=== PATIENT | female | born 1945 | race Caucasian/White ===

== ENCOUNTER → 2020-03-05 15:42 | Outpatient (CLI) | payer MEDICARE, SELFPAY ==
--- NOTE | ~2020-03-05 | XR_ITS ---
XR hip LT 2V w AP pelvis 03/05/2020 15:53 Indication: Left hip pain Procedure: AP pelvis and 2 views left hip Comparison: No prior studies for comparison. Findings: There is moderate osteoarthritis of the left hip. Pelvic rings are intact. Sacral foramen a re symmetric. No significant soft tissue abnormality. No foreign bodies. No acute fracture or traumat ic malalignment. Impression: 1: Moderate osteoarthritis of the left hip. Reviewed, dictated and finalized at location A. Impression: 1: Moderate osteoarthritis of the left hip.
== END ==
PROVIDERS: PCP Family Medicine; Visit Provider Family Medicine
DX: M16.12 Unilateral primary osteoarthritis, left hip (principal); M25.552 Pain in left hip
CPT/HCPCS: 73502

== ENCOUNTER 2020-05-17 08:08 | Outpatient (CLI) | payer MEDICARE, SELFPAY ==
--- NOTE | ~2020-05-17 | XR_ITS ---
EXAMINATION: XR lg joint inject/asp w image DATE: 05/17/2020 09:11 INDICATION: Left hip primary osteoarthritis. TECHNIQUE: A time-out was performed to verify the patient's name, date of , and procedure to b e performed. The procedure including the risks, benefits, and alternatives was discussed with the pat ient. Risks discussed included bleeding and infection. The patient understood the risks and agreed to proceed. The skin overlying the left joint was prepped and draped in usual sterile fashion. Anesth etic was administered with 1% lidocaine subcutaneously. A 22 G needle was advanced under fluoroscopi c guidance into the joint. Subsequently, injectate consisting of 5 mL 1% lidocaine and 2 mL 10 mg/mL Kenalog was instilled. The needle was removed and the entry site was cleaned and dressed. There wer e no immediate complications. Fluoroscopy exposure time was 0.1 minutes. The total number of images w as 1. FINDINGS: Real-time fluoroscopy demonstrates the needle in the left hip joint. Patient's pain prior t o procedure:08/18. Patient's pain following the procedure: 05/20. IMPRESSION: 1. Fluoroscopy guided left hip joint injection of local anesthetic and steroid with decrease in the p atient's presenting pain. Reviewed, dictated and finalized at location A. GER ENROLLMENT IMPRESSION: 1. Fluoroscopy guided left hip joint injection of local anesthetic and steroid with decrease in the patient's presenting pain.
== END 2020-05-17 08:09 | disposition home or self-care (01) ==
PROVIDERS: PCP Family Medicine; Visit Provider Orthopaedic Surgery
DX: M16.12 Unilateral primary osteoarthritis, left hip (principal)
CPT/HCPCS: 20610; 77002; J3301

== ENCOUNTER 2021-08-21 10:31 | Outpatient (CLI) | payer MEDICARE, SELFPAY ==
--- NOTE | ~2021-08-21 | XR_ITS ---
EXAMINATION: XR lg joint inject/asp w image DATE: 08/21/2021 11:23 INDICATION: Left hip pain. TECHNIQUE: A time-out was performed to verify the patient's name, date of , and procedure to b e performed. The procedure including the risks, benefits, and alternatives was discussed with the pat ient. Risks discussed included bleeding and infection. The patient understood the risks and agreed to proceed. The skin overlying the left hip joint was prepped and draped in usual sterile fashion. An esthetic was administered with 1% lidocaine subcutaneously. A 22 G needle was advanced under fluoros copic guidance into the joint. Subsequently, injectate consisting of 5 mL 1% lidocaine and 2 mL 10 m g/mL Kenalog was instilled. The needle was removed and the entry site was cleaned and dressed. Ther e were no immediate complications. Fluoroscopy exposure time was 0.1 minutes. The total number of lila ges was 1. FINDINGS: Real-time fluoroscopy demonstrates the needle in the left hip joint. Patient's pain prior t o procedure:2/10. Patient's pain following the procedure: 0/10. IMPRESSION: 1. Fluoroscopy guided left hip joint injection of local anesthetic and steroid with decrease in the p atient's presenting pain. Reviewed, dictated and finalized at location A. IMPRESSION: 1. Fluoroscopy guided left hip joint injection of local anesthetic and steroid with decrease in the patient's presenting pain.
== END 2021-08-21 10:32 | disposition home or self-care (01) ==
PROVIDERS: PCP Family Medicine; Visit Provider Orthopaedic Surgery
DX: M25.552 Pain in left hip (principal)
CPT/HCPCS: 20610; 77002; J3301; Q9966

== ENCOUNTER 2023-10-19 16:35 | Emergency (ER) | payer MEDICARE, SELFPAY ==
[2023-10-19 16:53] VITALS: PULSE 67; RESP 16; TEMP 36.6; O2SAT 99
[2023-10-19 16:58] VITALS: BP 130/76
--- NOTE | 2023-10-19 16:59 | PC.NURSE ---
Nickel size fluid filled blister to lateral right foot.
--- NOTE | 2023-10-19 17:47 | ED.WOUNDLAC ---
HPI - Wound/Laceration General Chief Complaint: Wound/Laceration Stated Complaint: Skin Sore/Right Foot Time Seen by Provider: 10/19/23 17:20 Source: patient, RN notes reviewed and old records reviewed Mode of arrival: ambulatory Limitations: no limitations History of Present Illness HPI narrative: 77year old female accompanied by family member presents to [facility] with complaints of noting a small red dot area to the right lateral upper foot about 4 days ago which was noted after mowing. Patient reports that now she has a blister type of lesion noted to the same area. Patient reports no pain to the area or any acute redness of tissue noted. Patient reports that she has applied some antihistamine ointment to blister area. Patient denies any fevers, chills or sweats. Patient reports allergy to some antibiotic but can't recall name or reaction. Patient has previously taken Cefdinir without reaction noted in patient medication history. Onset (ago): day(s) (4) Extremity Location: Right: foot (right upper foot area) Treatments prior to arrival: other (antihistamine skin ointment) Related Data Home Medications Medication Instructions Recorded Confirmed citalopram 40 mg tablet mg 10/19/23 raloxifene 60 mg tablet mg 10/19/23 Allergies Allergy/AdvReac Type Severity Reaction Status Date / Time iodine Allergy Unknown Verified 10/19/23 16:52 Review of Systems Review of Systems: CONSTITUTIONAL: Denies fever, chills, or sweats. CARDIOVASCULAR: Denies chest pain, palpitations, or edema. RESPIRATORY: Denies cough or dyspnea. GASTROINTESTINAL: Denies abdominal pain, nausea, vomiting SKIN: Reports blister type of lesion to the right lateral upper foot with no pain to site, no drainage noted, felipa sized fluid filled blister. MUSCULOSKELETAL: Denies myalgia. NEUROLOGIC: Denies headache, numbness All systems reviewed & are unremarkable except as noted in HPI and below PMFSH Past Medical History Medical History Anxiety and depression Social History Social History Smoking status: Unknown if ever smoked Substance use type: does not use Gender identity (if verbalized by the patient): Female Comments At time of signature, agree with nursing past medical, surgical, social and family history. There is no relevant family history pertinent to the presenting complaint Exam Narrative: GENERAL: Well-appearing, well-nourished, and in no acute distress. HEAD: Normocephalic, atraumatic. EYES: PERRLA and EOMI. ENT: Nares clear, no rhinorrhea or epistaxis. Mucous membranes moist.TM's normal with good light reflex, throat pink with no swelling NECK: Supple. no lymphadenopathy CHEST: Clear to auscultation. No respiratory distress.SAO2 99% on room air HEART: Regular rate and rhythm. No murmur heard. Normal peripheral pulses. ABDOMEN: Soft, nontender, nondistended, normal active bowel sounds. EXTREMITIES: Normal range of motion. No edema. SKIN: Warm, dry. Felipa sized blister to right lateral upper foot, While cleansing with wound cleanser blister popped with clear fluid noted, antibiotic ointment applied and covered with gauze and Coban dressing NEURO: No focal deficits. Alert and oriented x3. Course Course Emergency Course: Patient is aware of diagnosis, understands and agrees to treatment plan. Anticipatory guidance given. Patient agrees to follow-up as directed and is aware of reasons to seek care at the emergency department. Portions of this record may have been created with voice recognition software Level of Care: Express Care Visit Vital Signs Vital signs: Vital Signs Temperature 36.6 C 10/19/23 16:53 Pulse Rate 67 10/19/23 16:53 Respiratory Rate 16 10/19/23 16:53 Pulse Oximetry 99 10/19/23 16:53 Oxygen Delivery Room Air 10/19/23 16:53 Temperature 36.6 C 10/19/23 16:53 Pulse Rate
== END 2023-10-19 18:14 | disposition home or self-care (01) ==
PROVIDERS: Emergency Provider Registered Nurse; PCP Family Medicine
DX: S90.821A Blister (nonthermal), right foot, initial encounter (principal); X58.XXXA Exposure to other specified factors, initial encounter; F41.9 Anxiety disorder, unspecified; F32.A Depression, unspecified
CPT/HCPCS: 99213; G0463

== ENCOUNTER 2024-05-24 16:25 | Emergency (ER) | payer MEDICARE, SELFPAY ==
--- NOTE | 2024-05-24 16:30 | ED.URI ---
HPI - URI/Sore Throat General Chief Complaint: Upper Respiratory Infection Stated Complaint: Headache/Sore Throat/Congestion Time Seen by Provider: 05/24/24 16:57 Source: patient and RN notes reviewed Mode of arrival: ambulatory Limitations: no limitations History of Present Illness HPI Narrative: 78-year-old female presents with concern for nasal congestion, sore throat, headache, body aches. Reports symptoms for 2 days. She reports she was exposed to RSV. She denies cough or shortness of breath. MD elicited complaint: nasal congestion Related Data Home Medications ?Medication ?Instructions ?Recorded ?Confirmed ?Last Taken ?Type mecobalamin (vitamin B12) 2,500 mcg PO .qod 10/03/22 11/03/23 Unknown History mcg chewable tablet cholecalciferol (vitamin D3) 125 5,000 unit PO .qod 04/21/23 05/24/24 Unknown History mcg (5,000 unit) capsule Allergies Allergy/AdvReac Type Severity Reaction Status Date / Time iodine Allergy Intermediate Urticaria Verified 05/24/24 16:32 Review of Systems Review of Systems: CONSTITUTIONAL: Denies malaise, chills, sweats, or fever. EYES: Denies visual changes, redness, or discharge. ENT: Reports rhinorrhea, congestion. Denies sinus pain, otalgia and sore throat. CARDIOVASCULAR: Denies chest pain, palpitations, or edema. RESPIRATORY: Denies cough. Denies dyspnea. GASTROINTESTINAL: Denies abdominal pain, nausea, vomiting, diarrhea SKIN: Denies rash or itching. MUSCULOSKELETAL: Reports myalgia. NEUROLOGIC: Reports headache. All systems reviewed & are unremarkable except as noted in HPI and below [facility] Past Medical History Medical History (Updated 05/24/24 @ 17:07 by Kelin Jaramillo NP) Bullous pemphigoid (~10/15/23) lower extremities possibly from medication( ibuprofen, cefdinir, citalopram?) Mixed hyperlipidemia cholesterol 198, triglycerides 87, HDL 61, LDL 118 with ratio 3.2 on 10/02/2023. Anxiety and depression Spider bite (~10/15/23) likely pemphigoid .dorsum right foot with cellulitis At moderate risk for fall Overweight (BMI 25.0-29.9) Breast cancer screening BMI 29.0-29.9,adult Osteopenia Vitamin B12 deficiency (10/03/21) Level low at 269 with goal greater than 400 on 10/03/2021. Hemoglobin normal at 13.5. 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 vestibular disorder BMI 32.0-32.9,adult Obesity (BMI 30.0-34.9) COVID-19 (~05/29/21) tested positive 06/04/2021 Acute non-recurrent maxillary sinusitis Osteoarthritis of left hip Colon cancer screening Breast cancer screening by mammogram Chronic left hip pain BMI 30.0-30.9,adult Family History Family History (System 10/27/23 @ 07:29 by Renetta Sommers) Father Patient's father is , Onset Age: 80 Family history of malignant neoplasm of stomach Grandparent Family history of malignant neoplasm of stomach Family history of malignant neoplasm of uterus Mother Family history of kidney disease, Onset Age: 94 Social History Social History Smoking packs per day: 1 Smoking cigarettes per day: 20.0 Years smoked: 50 Smoking pack-years: 50.00 Smoking status: Current every day smoker Tobacco type: cigarettes Alcohol intake: never Substance use: never Substance use type: does not use Lack of Transportation: YES Lack of Food: Never True Current Housing: I Have Housing Concerned About Future Housing: No Difficulty Paying Gas/Electric Bills: No Difficulty Paying for Meds: No Currently Unemployed: No Education: High School Diploma/GED Difficulty w/ Childcare or Family Care: No Gender identity (if verbalized by the patient): Female Comments At time of signature, agree with nursing past medical, surgical, social and family history. There is no relevant family history pertinent to the presenting complaint Exam Narrative: GENERAL: Well-appearing, well-nourished, and in no acute distress. HEAD: Normocephalic EYES: PERRLA, conjunctivae clear ENT: Nares clear. Mucous membranes moist. TM pearly maldonado with dull light reflex bilaterally; no tragal tenderness. Oropharynx not erythematous without lesions. Tonsils not enlarged and without exudate, no drooling, no hoarseness, no trismus, uvula midline. NECK: Supple. No lymphadenopathy CHEST: Clear to auscultation, breath sounds equal. No wheezing, rhonchi, rales, or stridor. No respiratory distress, speaks in full sentences. HEART: Regular rate and rhythm. No murmur heard. SKIN: Warm, dry, no rash. NEURO: Alert and oriented x3. PSYCH: Normal mood and affect Course Course Emergency Course: Patient is aware of diagnosis, understands and agrees to treatment plan. Anticipatory guidance given. Patient agrees to follow-up as directed and is aware of reasons to seek care at the emergency department. Portions of this record may have been created with voice recognition software Level of Care: Express Care Visit Vital Signs Vital signs: Reviewed. MDM - URI/Sore Throat MDM Narrative Medical decision making narrative: Differential diagnosis considered: Ballard virus, strep pharyngitis, allergic rhinitis, upper respiratory tract infection, sinusitis, rhinosinusitis, nasopharyngitis. viral pharyngitis, otitis media, otitis externa, pneumonia, bronchitis, viral cough syndrome, viral syndrome, and influenza. Exam findings show no acute concerns or changes; patient is non-toxic appearing and is in no distress. Patient is appropriate for outpatient treatment and follow-up. Lab Data Attestation: I reviewed the patient's lab results. Critical Care Time Critical Care Time Critical Care Time: No Discharge Plan Discharge Clinical Impression: Upper respiratory infection Patient Disposition: Home, Self-Care Condition: Stable Instructions: Upper Respiratory Infection (ED) Additional Instructions: Your rapid COVID and flu tests are negative -Take strict precautions to prevent the spread of your virus. Be diligent about covering your cough (even when you are alone) and washing your hands frequently. -You may contagious until you have been symptom and/or fever free for 24 hours without fever reducing medicine -Alternate Ibuprofen and Tylenol for pain and fever relief (per package directions) -Drink plenty of fluid - drink fluid with electrolytes such as Gatorade or other oral re-hydration solution. Avoid caffeine, which can make dehydration worse. -Get plenty of rest to help your body heal. -Use a cool mist humidifier for chest and nasal congestion. -Eat RAW honey or use cough drops to ease throat discomfort -Do not smoke or expose children to secondhand smoke -Wash your hands frequently. -Please follow-up with your primary care doctor in the next 1-2 days if your symptoms do not improve. -If you have any worsening of symptoms or any other concerns please go to the ED immediately. -Please take medications as prescribed and continue taking your home medications as usual. Patient Language: Croatian Prescriptions: No Action mecobalamin (vitamin B12) 2,500 mcg tablet,chewable PO .qod cholecalciferol (vitamin D3) 125 mcg (5,000 unit) capsule 5,000 unit PO .qod citalopram 40 mg tablet 40 mg PO DAILY Qty: 90 3RF raloxifene [Evista] 60 mg tablet 60 mg PO DAILY Qty: 90 3RF Follow-up/Referrals: Edwin Michael MD [Primary Care Provider] - Time of Disposition: 17:07
[2024-05-24 16:34] VITALS: BP 149/71; PULSE 84; RESP 18; TEMP 37; O2SAT 98
[2024-05-24 17:06] LABS: EDCOVIDSCREEN Negative (Negative); EDINFLUASCREEN Negative (Negative); EDINFLUBSCREEN Negative (Negative)
== END 2024-05-24 17:09 | disposition home or self-care (01) ==
PROVIDERS: Emergency Provider Nurse Practitioner; PCP Family Medicine
DX: J06.9 Acute upper respiratory infection, unspecified (principal); Z20.822 Contact with and (suspected) exposure to COVID-19; F17.210 Nicotine dependence, cigarettes, uncomplicated; E78.2 Mixed hyperlipidemia; M85.80 Other specified disorders of bone density and structure, unspecified site; E53.8 Deficiency of other specified B group vitamins; E66.9 Obesity, unspecified; Z68.30 Body mass index [BMI] 30.0-30.9, adult; Z86.16 Personal history of COVID-19; M16.12 Unilateral primary osteoarthritis, left hip
CPT/HCPCS: 87426; 87804; 99212; G0463

== ENCOUNTER 2025-01-11 10:07 | Emergency (ER) | payer MEDICARE, SELFPAY ==
--- NOTE | ~2025-01-11 | XR_ITS ---
EXAMINATION: XR ribs LT 2V w CXR 2V DATE: 01/11/2025 10:54 INDICATION: Shortness of breath and right rib pain TECHNIQUE: A frontal inspiratory view of the chest and 3 views of the right ribs were obtained. COMPARISON: None FINDINGS: Consolidation in the right upper lobe which extends to abut the major and minor fissures consistent with pneumonia. Mild linear discoid atelectasis at the left lower lung zone. Remainder of the lungs are clear. No pulmonary edema, pleural effusion or pneumothorax. Heart size is normal. No rib fractures identified. Mild to moderate thoracic spondylosis. IMPRESSION: 1. Right upper lobe pneumonia. Reviewed, dictated and finalized at location A.
[2025-01-11 10:16] VITALS: BP 113/51; PULSE 97; RESP 20; TEMP 36.7; O2SAT 95
--- NOTE | 2025-01-11 10:29 | ED.URI ---
HPI - URI/Sore Throat General Chief Complaint: Upper Respiratory Infection Stated Complaint: Shortness of Breath/Chest Pain/Cough/Body Aches Time Seen by Provider: 01/11/25 10:34 Source: patient and RN notes reviewed Mode of arrival: ambulatory Limitations: no limitations History of Present Illness HPI Narrative: 79-year-old female presents with concern for right-sided chest pain, worse when she moves or coughs. Reports it is tender. She denies injury or trauma. She reports she feels short of breath, has body aches and has an occasional cough. Reports 4 days of symptoms. MD elicited complaint: cough and other (Shortness of breath) Related Data Home Medications ?Medication ?Instructions ?Recorded ?Confirmed ?Last Taken ?Type mecobalamin (vitamin B12) 2,500 mcg PO .qod 10/03/22 11/03/23 Unknown History mcg chewable tablet cholecalciferol (vitamin D3) 125 5,000 unit PO .qod 04/21/23 05/24/24 Unknown History mcg (5,000 unit) capsule Allergies Allergy/AdvReac Type Severity Reaction Status Date / Time iodine Allergy Intermediate Urticaria Verified 01/11/25 10:20 Review of Systems Review of Systems: CONSTITUTIONAL: Denies malaise, chills, sweats, or fever. EYES: Denies visual changes, redness, or discharge. ENT: Reports rhinorrhea, congestion, sinus pain, otalgia and sore throat. CARDIOVASCULAR: Reports right side chest pain and tenderness. Denies palpitations or edema. RESPIRATORY: Reports occasional cough. Reports dyspnea. GASTROINTESTINAL: Denies abdominal pain, nausea, vomiting, diarrhea SKIN: Denies rash or itching. MUSCULOSKELETAL: Denies myalgia. NEUROLOGIC: Denies headache. All systems reviewed & are unremarkable except as noted in HPI and below [facility] Past Medical History Medical History (Updated 01/11/25 @ 11:18 by Kelin Jaramillo NP) Bullous pemphigoid (~10/15/23) lower extremities possibly from medication( ibuprofen, cefdinir, citalopram?) Mixed hyperlipidemia cholesterol 198, triglycerides 87, HDL 61, LDL 118 with ratio 3.2 on 10/02/2023. Anxiety and depression Spider bite (~10/15/23) likely pemphigoid .dorsum right foot with cellulitis At moderate risk for fall Overweight (BMI 25.0-29.9) Breast cancer screening BMI 29.0-29.9,adult Osteopenia Vitamin B12 deficiency (10/03/21) Level low at 269 with goal greater than 400 on 10/03/2021. Hemoglobin normal at 13.5. 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 vestibular disorder BMI 32.0-32.9,adult Obesity (BMI 30.0-34.9) COVID-19 (~05/29/21) tested positive 06/04/2021 Acute non-recurrent maxillary sinusitis Osteoarthritis of left hip Colon cancer screening Breast cancer screening by mammogram Chronic left hip pain BMI 30.0-30.9,adult Family History Family History (System 10/27/23 @ 07:29 by Renetta Sommers) Father Patient's father is , Onset Age: 80 Family history of malignant neoplasm of stomach Grandparent Family history of malignant neoplasm of stomach Family history of malignant neoplasm of uterus Mother Family history of kidney disease, Onset Age: 94 Social History Social History Smoking packs per day: 1 Smoking cigarettes per day: 20.0 Years smoked: 50 Smoking pack-years: 50.00 Smoking status: Current every day smoker Tobacco type: cigarettes Alcohol intake: never Substance use: never Substance use type: does not use Lack of Transportation: YES Lack of Food: Never True Current Housing: I Have Housing Concerned About Future Housing: No Difficulty Paying Gas/Electric Bills: No Difficulty Paying for Meds: No Currently Unemployed: No Education: High School Diploma/GED Difficulty w/ Childcare or Family Care: No Gender identity (if verbalized by the patient): Female Comments At time of signature, agree with nursing past medical, surgical, social and family history. There is no relevant family history pertinent to the presenting complaint Exam Narrative: GENERAL: Nontoxic-appearing, well-nourished, and in no acute distress. HEAD: Normocephalic EYES: PERRLA, conjunctivae clear ENT: Nares clear. Mucous membranes moist. NECK: Supple. No lymphadenopathy CHEST: Clear to auscultation, breath sounds equal. No wheezing, rhonchi, rales, or stridor. Conversational dyspnea HEART: Regular rate and rhythm. No murmur heard. SKIN: Warm, dry, no rash. NEURO: Alert and oriented x3. PSYCH: Normal mood and affect Course Course Emergency Course: Patient and caregiver are aware of diagnosis, understands and agrees to to be transferred to the emergency room. Patient agrees to proceed directly to the emergency department. Portions of this record may have been created with voice recognition software Level of Care: Express Care Visit Vital Signs Vital signs: Vital Signs Temperature 98.1 F 01/11/25 10:16 Pulse Rate 97 01/11/25 10:16 Respiratory Rate 20 01/11/25 10:16 Blood Pressure 113/51 L 01/11/25 10:16 Pulse Oximetry 95 01/11/25 10:16 Oxygen Delivery Room Air 01/11/25 10:16 Temperature 98.1 F 01/11/25 10:16 Pulse Rate 97 01/11/25 10:16 Respiratory Rate 20 01/11/25 10:16 Blood Pressure 113/51 L 01/11/25 10:16 Pulse Oximetry 95 01/11/25 10:16 Oxygen Delivery Room Air 01/11/25 10:16 Reviewed. Transfer Transfered to: [facility] Transportation: Other (Private vehicle) Transfer rationale: Shortness of breath Accepting physician: Maikel MDM - URI/Sore Throat MDM Narrative Medical decision making narrative: I evaluated this patient in the [facility]. History is obtained from patient who is an independent historian and physical exam was performed.? Available medical records were reviewed. ? Exam findings and relevant testing or further evaluation emergency room ? Patient is nontoxic appearing and in no acute distress Lab Data Attestation: I reviewed the patient's lab results. Critical Care Time Critical Care Time Critical Care Time: No Discharge Plan Discharge Clinical Impression: Shortness of breath Patient Disposition: Acute Care Hospital Condition: Stable Patient Language: Indian Prescriptions: No Action mecobalamin (vitamin B12) 2,500 mcg tablet,chewable PO .qod cholecalciferol (vitamin D3) 125 mcg (5,000 unit) capsule 5,000 unit PO .qod raloxifene [Evista] 60 mg tablet 60 mg PO DAILY Qty: 90 3RF citalopram 40 mg tablet 40 mg PO DAILY Qty: 90 3RF Follow-up/Referrals: UNKNOWN,DOCTOR [Primary Care Provider] Time of Disposition: 11:18
[2025-01-11 10:37] LABS: EDCOVIDSCREEN Negative (Negative); EDINFLUASCREEN Negative (Negative); EDINFLUBSCREEN Negative (Negative)
--- OUTSIDE RECORDS SUMMARY | 2025-01-11 11:16 | XMS_ITS | Clinical Summary ---
Author Organization [facility] Address [address], [address] [address] Phone Care Team Providers Care Helper Maintenance Cleaning Name Role Phone Edwin Michael MD Primary Care Provider Social History Tobacco Use Types Packs/Day Years Used Date Smoking Tobacco: Never Assessed Comments Unknown Sex and Gender Information Value Date Recorded Sex Assigned at Not on file Legal Sex Female 1:26 PM CDT Gender Identity Not on file Sexual Orientation Not on file Plan of Treatment Health Maintenance Due Date Last Done Comments Hepatitis C Virus (HCV) Screening 1945 TdaP Immunization 1945 Pneumococcal Immunization (5 0+ years) (1 of 1 - PCV) 1994 Zoster Immunization (1 of 2) 1994 Respiratory Syncytial Virus (RSV) Immunization (Adult) (1 - 1-dose 75+ series) 12/29/2019 SARS-COV-2 Immunization (1 - season) 2024 Influenza Immunization (#1) 2025 Hepatitis B Immunization Aged Out No longer eligible based on patient's age to complete this topic Human Papillomavirus (HPV) Immunization Aged Out No longer eligible b ased on patient's age to complete this topic Meningococcal Immunization (ACWY) Aged Out No longer eligible based on patient's age to complete this topic Rotavirus Immunization Aged Out No lo nger eligible based on patient's age to complete this topic [facility] Care Teams Helper Maintenance Cleaning Relationship Specialty Start Date End Date Edwin Michael MD [address] [address] PCP - General Family Medicine 08/07/16
== END 2025-01-11 11:26 | disposition short-term general hospital (02) ==
PROVIDERS: Emergency Provider Nurse Practitioner
DX: R06.02 Shortness of breath (principal); Z20.822 Contact with and (suspected) exposure to COVID-19; F17.210 Nicotine dependence, cigarettes, uncomplicated; E78.2 Mixed hyperlipidemia; M85.80 Other specified disorders of bone density and structure, unspecified site; E66.9 Obesity, unspecified; Z68.25 Body mass index [BMI] 25.0-25.9, adult; M16.12 Unilateral primary osteoarthritis, left hip; E53.8 Deficiency of other specified B group vitamins; Z86.16 Personal history of COVID-19; F41.9 Anxiety disorder, unspecified; F32.A Depression, unspecified
CPT/HCPCS: 71046; 71100; 87426; 87804; 99213; G0463

== ENCOUNTER 2025-01-11 11:57 | Inpatient (IN) | payer MEDICARE, SELFPAY ==
[2025-01-11] VITALS (21 sets, daily range): BP systolic 81–127; BP diastolic 40–67; PULSE 79–98; RESP 16–28; TEMP 36.6–36.9; O2SAT 94–98; BMI 26.7
--- NOTE | ~2025-01-11 | XR_ITS ---
XR chest 1V portable 01/12/2025 14:12 Indication: Shortness of breath Procedure: AP portable chest Comparison: 01/11/2025 Findings: Unchanged airspace disease right upper and middle lobes, consistent with pneumonia. Heart size normal. No pleural effusion or pneumothorax. No acute osseous abnormality. Impression: 1: Stable pneumonia right upper and middle lobes. Reviewed, dictated and finalized at location O. Impression: 1: Stable pneumonia right upper and middle lobes.
--- NOTE | ~2025-01-11 | CT_ITS ---
EXAM: CT diagnostic chest wo con - 01/12/2025 14:25 CDT History: 79 years old Female with ?empyema, lung mass TECHNIQUE: CT scan of the chest without IV contrast. Coronal and sagittal reformats were also provided for review. Automatic exposure control was used for this study. Contrast: 80 cc of Isovue-300 COMPARISON: None available.. FINDINGS: LINES AND DEVICES: None. VISUALIZED LOWER NECK: Thyroid gland appears normal. No supraclavicular lymphadenopathy. AIRWAYS: Patent centrally. LUNGS and PLEURA: Right apical honeycombing. Consolidation in the right upper and middle lobes.No pleural effusion. No empyema seen. MEDIASTINUM and XIAO: No hilar or mediastinal lymphadenopathy. No mediastinal mass is seen. Esophagus appears normal. HEART AND PERICARDIUM: Cardiac chambers are normal in size. No pericardial fluid or thickening is present. VASCULATURE: Thoracic aorta and pulmonary arteries are normal in caliber. CHEST WALL: No supraclavicular or axillary lymphadenopathy. MUSCULOSKELETAL: Multilevel degenerative changes of the thoracic spine. UPPER ABDOMEN: Unremarkable. IMPRESSION: Right upper lobe and right middle lobe consolidation. No empyema is seen. Reviewed, dictated and finalized at location N.
--- NOTE | ~2025-01-11 | XR_ITS ---
EXAMINATION: XR chest 2V DATE: 01/11/2025 13:01 INDICATION: Shortness of breath TECHNIQUE: frontal and lateral views of the chest were obtained. COMPARISON: Chest radiograph dated 01/11/25 at 10:49 AM FINDINGS: Persistent consolidation in the right upper lobe extending to contact the major and minor fissures. Additional patchy airspace opacity in the right middle lobe. Mild linear discoid atelectasis/scarring along the left major fissure. No pulmonary edema, pleural effusion or pneumothorax. The cardiomediastinal silhouette is normal. Mild to moderate thoracic spondylosis. IMPRESSION: 1. Right upper and middle lobar pneumonia. Reviewed, dictated and finalized at location A.
--- NOTE | 2025-01-11 12:05 | ECG_ITS ---
Test Date: 2025-01-11 12:10:06 Measurements Intervals [place] Rate: 90 P: 63 [place]: 132 QRS: 55 QRSD: 81 T: 53 QT: 315 QTc: 387 Interpretive Statements SINUS RHYTHM NORMAL ECG No previous ECG available for comparison Electronically Signed On 01-11-2025 15:37:16 CDT by Angelo Vidal M.D.
[2025-01-11] MEDS: ACETAMINOPHEN 500 MG TABLET 1000 MG PO (12:22)
--- NOTE | 2025-01-11 12:24 | ED.GENADULT ---
HPI - General Adult General Chief complaint: Shortness of Breath/Dyspnea Stated complaint: from urgent care Time Seen by Provider: 01/11/25 12:05 History of Present Illness HPI narrative: This is an 79-year-old female presenting to the ED for chest pain shortness of breath. Patient says she has been having right-sided sharp chest pain that is worse when she coughs for the last 5-6 days. Is associated with shortness of breath and body aches. She has had subjective fevers but has not taken a temperature. No nausea vomiting diarrhea. No lower extremity edema. Related Data Home Medications ?Medication ?Instructions ?Recorded ?Confirmed ?Last Taken ?Type mecobalamin (vitamin B12) 2,500 mcg PO .qod 10/03/22 11/03/23 Unknown History mcg chewable tablet cholecalciferol (vitamin D3) 125 5,000 unit PO .qod 04/21/23 05/24/24 Unknown History mcg (5,000 unit) capsule Allergies Allergy/AdvReac Type Severity Reaction Status Date / Time iodine Allergy Intermediate Urticaria Verified 01/11/25 13:05 seafood AdvReac Intermediate Hives Uncoded 01/11/25 13:05 FORMERLY [facility], [facility] Past Medical History Medical History Bullous pemphigoid (~10/15/23) lower extremities possibly from medication( ibuprofen, cefdinir, citalopram?) Mixed hyperlipidemia cholesterol 198, triglycerides 87, HDL 61, LDL 118 with ratio 3.2 on 10/02/2023. Anxiety and depression Spider bite (~10/15/23) likely pemphigoid .dorsum right foot with cellulitis At moderate risk for fall Overweight (BMI 25.0-29.9) Breast cancer screening BMI 29.0-29.9,adult Osteopenia Vitamin B12 deficiency (10/03/21) Level low at 269 with goal greater than 400 on 10/03/2021. Hemoglobin normal at 13.5. 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 vestibular disorder BMI 32.0-32.9,adult Obesity (BMI 30.0-34.9) COVID-19 (~05/29/21) tested positive 06/04/2021 Acute non-recurrent maxillary sinusitis Osteoarthritis of left hip Colon cancer screening Breast cancer screening by mammogram Chronic left hip pain BMI 30.0-30.9,adult Family History Family History Father Patient's father is , Onset Age: 80 Family history of malignant neoplasm of stomach Grandparent Family history of malignant neoplasm of stomach Family history of malignant neoplasm of uterus Mother Family history of kidney disease, Onset Age: 94 Social History Social History Smoking packs per day: 1 Smoking cigarettes per day: 20.0 Years smoked: 50 Smoking pack-years: 50.00 Smoking status: Current every day smoker Tobacco type: cigarettes Alcohol intake: never Substance use: never Substance use type: does not use Lack of Transportation: YES Lack of Food: Never True Current Housing: I Have Housing Concerned About Future Housing: No Difficulty Paying Gas/Electric Bills: No Difficulty Paying for Meds: No Currently Unemployed: No Education: High School Diploma/GED Difficulty w/ Childcare or Family Care: No Gender identity (if verbalized by the patient): Female Exam Narrative: APPEARANCE: No apparent distress. Head: atraumatic. EYES: EOMI, NOSE: Atraumatic NECK: Trachea midline RESPIRATORY: No increased rate of breathing clear to auscultation CARDIOVASCULAR: RRR, no peripheral edema ABDOMINAL: Non-distended soft nontender MUSCULOSKELETAl: No obvious deformities NEURO: Alert. Moving 4/4 extremities SKIN:: Warm, dry. Normal color PSYCHIATRIC: Normal affect Course Vital Signs Vital signs: Vital Signs Pulse Rate 97 01/11/25 12:08 Respiratory Rate 16 01/11/25 12:08 Blood Pressure 104/59 L 01/11/25 12:08 Pulse Oximetry 96 01/11/25 12:08 Oxygen Delivery Room Air 01/11/25 12:08 Pulse Rate 81 01/11/25 14:30 Respiratory Rate 22 H 01/11/25 14:30 Blood Pressure 103/54 L 01/11/25 14:30 Pulse Oximetry 98 01/11/25 13:00 Oxygen Delivery Room Air 01/11/25 12:15 Medical Decision Making MDM Narrative Medical decision making narrative: -Course: 79-year-old female sent from urgent care for possible pneumonia. Patient's right-sided chest pain. X-ray shows right lobar pneumonia. Patient given antibiotics and 30 cc/kilogram bolus. White count 22. Lactic normal. Blood pressures were soft 89/53. Blood pressure responded to initial fluid bolus at 103/54 w/ map of 68. She was monitored for an hour after the fluid bolus with no changes in blood pressure. She will be admitted to the IMU for further management. Discussed goals of care. Patient is no CPR. Intubation okay. Pressors okay. -DDX includes but is not limited to: Pneumonia Sepsis UTI dehydration Vital Signs Vital Signs: Vital Signs Pulse Rate 97 01/11/25 12:08 Respiratory Rate 16 01/11/25 12:08 Blood Pressure 104/59 L 01/11/25 12:08 Pulse Oximetry 96 01/11/25 12:08 Oxygen Delivery Room Air 01/11/25 12:08 Pulse Rate 81 01/11/25 14:30 Respiratory Rate 22 H 01/11/25 14:30 Blood Pressure 103/54 L 01/11/25 14:30 Pulse Oximetry 98 01/11/25 13:00 Oxygen Delivery Room Air 01/11/25 12:15 Lab Data 01/11/25 12:20 01/11/25 12:20 Labs: Lab Results 01/11/25 01/11/25 Range/Units 12:20 12:35 WBC 22.6 H (4.5-10.0) K/mm3 RBC 3.91 L (4.2-5.4) M/mm3 Hgb 12.9 (12.0-15.0) g/dL Hct 37.7 (37.0-47.0) % MCV 96.4 (80-100) fl MCH 33.0 (26-34) pg MCHC 34.2 (32-36) g/dl RDW 12.9 (11.5-14.5) % Plt Count 183 (150-375) k/mm3 MPV 11.6 H (7.4-10.4) fl Immature Gran % (Auto) Not Reportable Neut % (Auto) Not Reportable Lymph % (Auto) Not Reportable [place] % (Auto) Not Reportable Eos % (Auto) Not Reportable Baso % (Auto) Not Reportable Lymph # (Auto) Not Reportable [place] # (Auto) Not Reportable Eos # (Auto) Not Reportable Baso # (Auto) Not Reportable Abs Immat Gran (auto) Not Reportable Absolute Neuts (auto) Not Reportable Absolute Nucleated RBC Not Reportable Total Counted 100 Neutrophils % (Manual) 83 H (46-73) % Band Neutrophils % 10 H (0-6) % Lymphocytes % (Manual) 2 L (18-44) % Monocytes % (Manual) 5 (3-9) % Nucleated RBC % Not Reportable Abs Neuts (Manual) 21.01 H (1.3-6.7) K/mm3 Abs Lymphs (Manual) 0.45 L (1.1-4.5) K/mm3 Abs Monocytes (Manual) 1.13 H (0.1-0.90) K/mm3 Platelet Estimate Adequate (Adequate) Schistocytes None seen Sodium 131 L (137-145) mmol/L Potassium 3.6 (3.4-5.0) mmol/L Chloride 101 (98-107) mmol/L Carbon Dioxide 22 (22-30) mmol/L Anion Gap 8 (4-12) mmol/L BUN 36 H (7-17) mg/dL Creatinine 1.01 H (0.7-1.0) mg/dL Estim Creat Clear Calc Not Reportable Estimated GFR 53 L (59 - ) Glucose 120 H (65-110) mg/dL Lactic Acid 1.8 (0.7-2.0) mmol/L Calcium 9.0 (8.4-10.2) mg/dL Total Bilirubin 1.5 H (0.2-1.3) mg/dL AST 29 (14-36) U/L ALT 15 (6-35) U/L Alkaline Phosphatase 181 H (38-126) U/L Troponin I Cancelled Total Protein 6.7 (6.3-8.2) g/dL Albumin 3.3 L (3.5-5.1) g/dL Influenza A (RT-PCR) Negative (Negative) Influenza B (RT-PCR) Negative (Negative) RSV (RT-PCR) Negative (Negative) SARS-CoV-2 RNA (RT-PCR) Negative (Negative) Discharge Plan Discharge Clinical Impression: PNA (pneumonia) Patient Disposition: Still a Patient Condition: Guarded Prognosis Patient Language: Serbian Prescriptions: No Action mecobalamin (vitamin B12) 2,500 mcg tablet,chewable PO .qod cholecalciferol (vitamin D3) 125 mcg (5,000 unit) capsule 5,000 unit PO .qod raloxifene [Evista] 60 mg tablet 60 mg PO DAILY Qty: 90 3RF citalopram 40 mg tablet 40 mg PO DAILY Qty: 90 3RF Follow-up/Referrals: UNKNOWN,DOCTOR [Primary Care Provider]
[2025-01-11 12:39] LABS: Hematocrit 37.7 % (37.0-47.0); Hemoglobin 12.9 g/dL (12.0-15.0); Mean Corpuscular HGB Conc 34.2 g/dl (32-36); Mean Corpuscular Hemoglobin 33.0 pg (26-34); Mean Corpuscular Volume 96.4 fl (80-100); Platelet Count Result 183 k/mm3 (150-375); Red Blood Count 3.91 M/mm3 (4.2-5.4); White Blood Count 22.6 K/mm3 (4.5-10.0)
[2025-01-11 12:45] LABS: Alanine Aminotransferase 15 U/L (6-35); Albumin Level 3.3 g/dL (3.5-5.1); Alkaline Phosphatase 181 U/L (38-126); Anion Gap 8 mmol/L (4-12); Aspartate Amino Transferase 29 U/L (14-36); Bilirubin,Total 1.5 mg/dL (0.2-1.3); Blood Urea Nitrogen 36 mg/dL (7-17); Calcium 9.0 mg/dL (8.4-10.2); Carbon Dioxide 22 mmol/L (22-30); Chloride 101 mmol/L (98-107); Estimated Glomerular Filt Rate 53; Glucose 120 mg/dL (65-110); Potassium 3.6 mmol/L (3.4-5.0); Sodium 131 mmol/L (137-145); Total Protein 6.7 g/dL (6.3-8.2)
[2025-01-11 13:00] LABS: Band Neutrophils Percent 10 % (0-6); Lymphocytes Absolute Manual 0.45 K/mm3 (1.1-4.5); Lymphocytes Percent Manual 2 % (18-44); Monocytes Absolute Manual 1.13 K/mm3 (0.1-0.90); Monocytes Percent Manual 5 % (3-9); Neutrophils Absolute Manual 21.01 K/mm3 (1.3-6.7); Neutrophils Percent Manual 83 % (46-73); Schistocytes None Seen; Total Cells Counted 100
[2025-01-11] MEDS: cefTRIAXone 1 GM in SODIUM CHLORIDE 0.9% IV 50 ML 100 ML IVPB (13:06)
[2025-01-11 13:15] LABS: Influenza A QL RT-PCR Negative (Negative); Influenza B QL RT-PCR Negative (Negative); RSV RNA, RT-PCR Negative (Negative); SARS-CoV-2 RNA PCR Negative (Negative)
[2025-01-11] MEDS: SODIUM CHLORIDE 0.9% IV 500 ML 999 ML IV CONT (13:24)
[2025-01-11] MEDS: AZITHROMYCIN IV 500 MG in SODIUM CHLORIDE 0.9% IV 250 ML IVPB (13:26)
--- OUTSIDE RECORDS SUMMARY | 2025-01-11 13:37 | XMS_ITS | Clinical Summary ---
Author Organization [facility] Address [address], [address] [address] Phone Care Team Providers Care Methods Specialist Engineer Name Role Phone Edwin Michael MD Primary [...] to complete this topic [facility] Care Teams Methods Specialist Engineer Relationship Specialty Start Date End Date Edwin Michael MD [address] [address] PCP - General Family Medicine 08/07/16
--- NOTE | 2025-01-11 13:56 | PC.NURSE ---
pt was already given 500mL of NS, the 900mL bag of LR ordered- only gave 400mL for the 30/cc protocol
[2025-01-11] MEDS: LACTATED RINGERS 900 ML 999 ML IV CONT (14:03)
[2025-01-11] MEDS: LACTATED RINGERS 1,000 ML 999 ML IV CONT (14:16)
[2025-01-11] MEDS: LACTATED RINGERS 1,000 ML 75 ML IV CONT (15:55)
--- NOTE | 2025-01-11 16:16 | P.HP_ITS ---
H&P: HPI History of Present Illness Date/Time: 01/11/25 16:16 Chief Complaint: Shortness of Breath Narrative: 79 y/o F with PMH of bilious pemphigoid, anxiety, depression, hyperlipidemia, osteopenia, vitamins B12 deficiency, BPPV, and osteoarthritis presents here with shortness of breath. The patient presents here from a local urgent care for further evaluation of shortness of breath and right-sided chest pain. She reports symptom onset around 4 to 5 days ago. She reports a minimal dry cough that would cause significant right sided chest pain. She would brace her right rib cage when she would cough which improved the pain. When she would clear her throat she reports she could feel fluid in her chest which she has never experienced. Endorses body aches, fever (did not have a thermometer with a working battery so could not check), decrease in UOP, and diaphoresis. She denies chills, midsternal chest pain, dizziness, nausea, vomiting or diarrhea. She reports her grandson's son was sick recently with tonsillitis. Initial VS at presentation: HR 97, R 16, 05/14/2058, and 96% on RA. ED workup showed: WBC 22.6, no anemia, sodium 131, creatinine 1.01 and GFR 53, glucose 120, lactic 1.8, and viral PCR negative. CXR showed right upper and middle lobar pneumonia. Initial EKG showed sinus rhythm, rate 90. Review of Systems Review of Systems: All systems reviewed & are unremarkable except as noted in HPI and below [facility] Past Medical History Medical History (Updated 01/11/25 @ 17:12 by Beth Kerr, CHRISS) Bullous pemphigoid (~10/15/23) lower extremities possibly from medication( ibuprofen, cefdinir, citalopra m?) Mixed hyperlipidemia cholesterol 198, triglycerides 87, HDL 61, LDL 118 with ratio 3.2 on 10/02/2023. Anxiety and depression Spider bite (~10/15/23) likely pemphigoid .dorsum right foot with cellulitis At moderate risk for fall Breast cancer screening Osteopenia Vitamin B12 deficiency (10/03/21) Level low at 269 with goal greater than 400 on 10/03/2021. Hemoglobin normal at 13.5. 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 vestibular disorder COVID-19 (~05/29/21) tested positive 06/04/2021 Acute non-recurrent maxillary sinusitis Osteoarthritis of left hip Colon cancer screening Breast cancer screening by mammogram Family History Family History Father Patient's father is , Onset Age: 80 Family history of malignant neoplasm of stomach Grandparent Family history of malignant neoplasm of stomach Family history of malignant neoplasm of uterus Mother Family history of kidney disease, Onset Age: 94 Social History Social History Smoking packs per day: 1 Smoking cigarettes per day: 20.0 Years smoked: 50 Smoking pack-years: 50.00 Smoking status: Current every day smoker Tobacco type: cigarettes Second hand tobacco smoke exposure: Yes Alcohol intake: never Substance use: never Substance use type: does not use Lack of Transportation: YES Lack of Food: Never True Current Housing: I Have Housing Concerned About Future Housing: No Difficulty Paying Gas/Electric Bills: No Difficulty Paying for Meds: No Currently Unemployed: No Education: Associate Degree Difficulty w/ Childcare or Family Care: No Gender identity (if verbalized by the patient): Female Spiritual care concerns: No Meds Home Medications and Allergies Home Medications ?Medication ?Instructions ?Recorded ?Confirmed ?Type mecobalamin (vitamin B12) 2,500 2,500 mcg PO DAILY 01/11/25 History mcg chewable tablet cholecalciferol (vitamin D3) 125 5,000 unit PO DAILY 1 06/22/22 01/11/25 History mcg (5,000 unit) capsule raloxifene 60 mg tablet (Evista) 60 mg PO DAILY #90 ta bs 04/25/24 01/11/25 Rx citalopram 40 mg tablet 40 mg PO DAILY #90 tabs 05/1201/11/25 Rx multivitamin with minerals-folic 1 tablet PO DAILY 08/0201/11/25 History acid 80 mcg chewable tablet (Centrum Adult 50 Plus) Allergies Allergy/AdvReac Type Severity Reaction Status Date / Time iodine Allergy Intermediate Urticaria Verified 01/11/25 13:05 seafood AdvReac Intermediate Hives Uncoded 01/11/25 13:05 Vital Signs Vital Signs - 24 hr 01/11/25 12:08 01/11/25 12:09 01/11/25 12:15 Pulse Rate 97 94 Respiratory Rate 16 Blood Pressure 104/59 L 104/59 L Pulse Oximetry 96 95 Oxygen Delivery Room Air Room Air 01/11/25 12:15 01/11/25 12:57 01/11/25 13:00 Pulse Rate 93 88 86 Respiratory Rate 21 H 24 H Blood Pressure 97/57 L 81/52 L 92/48 L Pulse Oximetry 96 98 Oxygen Delivery 01/11/25 13:04 01/11/25 13:07 01/11/25 13:15 Pulse Rate 88 89 90 Respiratory Rate 27 H 26 H 25 H Blood Pressure 96/51 L 89/66 L 84/46 L Pulse Oximetry Oxygen Delivery 01/11/25 13:19 01/11/25 13:34 01/11/25 13:45 Pulse Rate 88 87 81 Respiratory Rate 26 H 23 H 28 H Blood Pressure 89/52 L 94/50 L 89/50 L Pulse Oximetry Oxygen Delivery 01/11/25 14:00 01/11/25 14:15 01/11/25 14:30 Pulse Rate 83 79 81 Respiratory Rate 27 H 21 H 22 H Blood Pressure 89/53 L 102/67 103/54 L Pulse Oximetry Oxygen Delivery Exam Const: General: comfortable and no acute distress Other: , female, elderly, nontoxic appearance HENMT: Face/Nose/Sinus: Normal nares present Mouth: Yes moist mucous membranes Eyes: General: appearance normal, both eyes and all related structures Sclera: sclerae normal Pupils: Equal, round and reactive pupils present EOM: EOMs intact bilaterally Resp: Effort & Inspection: normal respiratory effort Other: Diminished breath sounds in the right lung field, no appreciable crackles. Clear in the left lung hernandez. No wheezing. Cardio: Rate: regular rate Rhythm: regular rhythm Other: S1-S2 present without murmur, rub, ectopy GI: Other: Abdomen soft, nondistended, nontender. Normoactive bowel sounds in all quadrants. Skin: General skin exam: normal color and no rashes or lesions noted Wounds: no wounds Neuro: Speech: normal speech Motor exam (neuro): 5/5 motor strength present throughout Sensory Exam: normal sensation Other: A&O x4 Extrem: General: normal to inspection Psych: Mental Status: mental status grossly normal Affect: normal affect Other: Good insight and judgment, pleasant H&P: Results Labs Labs: Short CBC 01/11/25 Range/Units 12:20 WBC 22.6 H (4.5-10.0) K/mm3 Hgb 12.9 (12.0-15.0) g/dL Hct 37.7 (37.0-47.0) % Plt Count 183 (150-375) k/mm3 BMP 01/11/25 12:20 Sodium 131 L Potassium 3.6 Chloride 101 Carbon Dioxide 22 BUN 36 H Creatinine 1.01 H Glucose 120 H Calcium 9.0 Cardiac Enzymes 01/11/25 Range/Units 12:20 Troponin I Cancelled Liver Function 01/11/25 Range/Units 12:20 Total Bilirubin 1.5 H (0.2-1.3) mg/dL AST 29 (14-36) U/L ALT 15 (6-35) U/L Alkaline Phosphatase 181 H (38-126) U/L Albumin 3.3 L (3.5-5.1) g/dL Assessment and Plan Assessment and plan (1) Sepsis: Qualifiers: Sepsis acute organ dysfunction status: without acute organ dysfunction Sepsis type: sepsis due to unspecified organism Qualified Code(s): A41.9 - Sepsis, unspecified organism Code(s): A41.9 - Sepsis, unspecified organism Status: Acute Assessment and Plan: - meets SIRS criteria: HR greater than 90, WBC greater than 14. Blood pressure soft/hypotensive, improved with IV fluids (81/52 -> 106/56). - lactic acid: 1.8 - 30 mL/kg = 1800 -> 2L given. BP remains on low end of normotensive, continue as 75 mL/hr - suspected source: Pneumonia - started on ceftriaxone and azithromycin on 01/11 - blood cultures drawn on 01/11, follow - check UA - monitor hemodynamic stability, admission to IMU (2) PNA (pneumonia): Qualifiers: Laterality: right Lung location: middle lobe of lung Pneumonia type: due to unspecified organism Qualified Code(s): J18.9 - Pneumonia, unspecified organism Code(s): J18.9 - Pneumonia, unspecified organism Status: Acute Assessment and Plan: - CXR: Right upper and middle lobar pneumonia. - started on CAP tx: ceftriaxone and azithromycin - check MRSA PCR and sputum culture - Viral PCR negative on 01/11 - no current supplemental O2 O2 requirement. - supportive care: DuoNebs p.r.n., Mucinex scheduled, Tessalon Perles p.r.n., Tylenol p.r.n. - utilize incentive spirometer (3) Tobacco use disorder, continuous: Code(s): F17.209 - Nicotine dependence, unspecified, with unspecified nicotine-induced disorders Status: Chronic Assessment and Plan: - current everyday smoker, 1PPD - nicotine patch p.r.n. Plan Diet: Heart healthy GI Prophylaxis: N/a DVT Prophylaxis: Lovenox SQ IV fluids: 2L -> 75 mL/hr Lines/Tubes: Peripheral IV Code Status: Modified Code, no CPR Quality VTE Prophylaxis VTE prophylaxis: pharmacologic ordered Hospitalist MIPS Advance Care Plan I have confirmed that the patient's Advanced Care Plan is present, code status is documented, or surrogate decision maker is listed in patient medical record.: Yes Medication Reconciliation I have utilized all available resources to obtain, update and review the patients current medications (includes all prescriptions, OTC, herbals, cannabis, and nutritional supplements).: Yes
--- NOTE | 2025-01-11 17:05 | ADMGEN ---
This patient, Celestina Mars, was admitted to IMU Room 200-01 at 1654. Patient/family oriented to hospital policies and general routines including ID bracelet, bed and alarms, visiting hours, pain management, procedures, bathroom and other care routines, personal items, smoking policy, room service/diet, and visiting hours. Information on how to activate the Rapid Response Team has been discussed. Patient/Family are encouraged to report perceived risks to care and to ask questions if they do not understand what they are told or what they should do.
--- OUTSIDE RECORDS SUMMARY | 2025-01-11 17:10 | XMS_ITS | Clinical Summary ---
Author Organization [facility] Address [address], [address] [address] Phone Care Team Providers Care Sr. Consultant Name Role Phone Edwin Michael MD Primary [...] to complete this topic [facility] Care Teams Sr. Consultant Relationship Specialty Start Date End Date Edwin Michael MD [address] [address] PCP - General Family Medicine 08/07/16
[2025-01-11 19:30] LABS: MRSA (PCR) NOT DETECTED (NOT DETECTE)
[2025-01-11 20:00] LABS: Add Urine Microscopic? YES; Appearance Urine Cloudy (Clear); Glucose Urine UA Negative (Negative); Leukocyte Esterase Ur 1+ LEU/UL (Negative); Need Manual Microscopic Reviewed; Nitrate Urine Negative (Negative); Specific Grav Ur 1.016 (1.001-1.035)
[2025-01-11] MEDS: guaiFENesin 12 HR 600 MG TABCR PO (20:33)
[2025-01-11] MEDS: BENZONATATE 100 MG CAPSULE PO (20:33)
[2025-01-12] VITALS (15 sets, daily range): BP systolic 98–118; BP diastolic 41–60; PULSE 44–94; RESP 17–28; TEMP 35.9–37.1; O2SAT 94–97; BMI 28.2
[2025-01-12 03:56] LABS: Hematocrit 30.6 % (37.0-47.0); Hemoglobin 10.4 g/dL (12.0-15.0); Mean Corpuscular HGB Conc 34.0 g/dl (32-36); Mean Corpuscular Hemoglobin 32.7 pg (26-34); Mean Corpuscular Volume 96.2 fl (80-100); Platelet Count Result 162 k/mm3 (150-375); Red Blood Count 3.18 M/mm3 (4.2-5.4); White Blood Count 24.0 K/mm3 (4.5-10.0)
[2025-01-12 04:16] LABS: Band Neutrophils Percent 6 % (0-6); Lymphocytes Absolute Manual 0.72 K/mm3 (1.1-4.5); Lymphocytes Percent Manual 3 % (18-44); Monocytes Absolute Manual 0.72 K/mm3 (0.1-0.90); Monocytes Percent Manual 3 % (3-9); Neutrophils Absolute Manual 22.56 K/mm3 (1.3-6.7); Neutrophils Percent Manual 88 % (46-73); Total Cells Counted 100
[2025-01-12 04:17] LABS: Schistocytes None Seen
[2025-01-12 04:41] LABS: Alanine Aminotransferase 12 U/L (6-35); Albumin Level 2.3 g/dL (3.5-5.1); Alkaline Phosphatase 111 U/L (38-126); Anion Gap 3 mmol/L (4-12); Aspartate Amino Transferase 25 U/L (14-36); Bilirubin,Total 0.7 mg/dL (0.2-1.3); Blood Urea Nitrogen 25 mg/dL (7-17); Calcium 8.3 mg/dL (8.4-10.2); Carbon Dioxide 24 mmol/L (22-30); Chloride 104 mmol/L (98-107); Estimated Glomerular Filt Rate > 60; Glucose 97 mg/dL (65-110); Potassium 3.3 mmol/L (3.4-5.0); Sodium 131 mmol/L (137-145); Total Protein 5.0 g/dL (6.3-8.2)
[2025-01-12] MEDS: LACTATED RINGERS 1,000 ML 75 ML IV CONT (04:51)
[2025-01-12] MEDS: guaiFENesin 12 HR 600 MG TABCR PO ×2 (08:54→20:28)
[2025-01-12] MEDS: CHOLECALCIFEROL (VITAMIN D3) 125 MCG (5,000 UNITS) TABLET PO (08:54)
[2025-01-12] MEDS: MULTIVITS W-FE,MIN CHEWABLE TABLET 1 TABLET PO (08:54)
[2025-01-12] MEDS: ENOXAPARIN 40 MG/0.4 ML SYRINGE SUB-Q (08:54)
[2025-01-12] MEDS: CITALOPRAM HYDROBROMIDE 20 MG TABLET 40 MG PO (08:54)
[2025-01-12] MEDS: CYANOCOBALAMIN 1,000 MCG TABLET 2000 MCG PO (08:54)
[2025-01-12] MEDS: RALOXIFENE HCL (*CHEMO) 60 MG TABLET PO (08:54)
[2025-01-12] MEDS: CYANOCOBALAMIN 500 MCG TABLET PO (08:54)
[2025-01-12] MEDS: AZITHROMYCIN IV 500 MG in SODIUM CHLORIDE 0.9% IV 250 ML IVPB (08:55)
[2025-01-12] MEDS: cefTRIAXone 1 GM in SODIUM CHLORIDE 0.9% IV 50 ML 100 ML IVPB (08:55)
--- NOTE | 2025-01-12 14:16 | PM.IMPN ---
Progress Note: A&P Assessment and Plan (1) Sepsis: Qualifiers: Sepsis type: sepsis due to unspecified organism Sepsis acute organ dysfunction status: without acute organ dysfunction Qualified Code(s): A41.9 - Sepsis, unspecified organism Code(s): A41.9 - Sepsis, unspecified organism Status: Acute Assessment and Plan: Vital signs improving and stable s/p IVF CXR showed dense RUL opacities, CT chest ordered to rule out abscess, mass or empyema Monitor culture Contineu Rocephin and Azithromycin continue close monitoring (2) PNA (pneumonia): Qualifiers: Laterality: right Lung location: middle lobe of lung Pneumonia type: due to unspecified organism Qualified Code(s): J18.9 - Pneumonia, unspecified organism Code(s): J18.9 - Pneumonia, unspecified organism Status: Acute Assessment and Plan: continue above care MRSA negative (3) Tobacco use disorder, continuous: Code(s): F17.209 - Nicotine dependence, unspecified, with unspecified nicotine-induced disorders Status: Chronic Assessment and Plan: - current everyday smoker, 1PPD - nicotine patch p.r.n. Plan Diet: Heart healthy DVT Prophylaxis: Lovenox SQ Code Status: Modified Code, no CPR Subjective Date/time seen: 01/12/25 14:16 Interval history: Comfortable at bedside CXR showed dense RUL opacities Review of Systems Review of Systems: All systems reviewed & are unremarkable except as noted in HPI and below Exam Const: General: comfortable and no acute distress Other: , female, elderly, nontoxic appearance HENMT: Face/Nose/Sinus: Normal nares present Mouth: Yes moist mucous membranes Eyes: General: appearance normal, both eyes and all related structures Sclera: sclerae normal Pupils: Equal, round and reactive pupils present EOM: EOMs intact bilaterally Resp: Effort & Inspection: normal respiratory effort Other: Diminished breath sounds in the right lung field, no appreciable crackles. Clear in the left lung hernandez. No wheezing. Cardio: Rate: regular rate Rhythm: regular rhythm Other: S1-S2 present without murmur, rub, ectopy GI: Other: Abdomen soft, nondistended, nontender. Normoactive bowel sounds in all quadrants. Skin: General skin exam: normal color and no rashes or lesions noted Wounds: no wounds Neuro: Cranial nerves: Yes Equal, round and reactive pupils present Speech: normal speech Motor exam (neuro): 5/5 motor strength present throughout Sensory Exam: normal sensation Other: A&O x4 Extrem: General: normal to inspection Psych: Mental Status: mental status grossly normal Affect: normal affect Other: Good insight and judgment, pleasant Objective Data Vital Signs Vital Signs: Vital Signs - 24 hr 01/11/25 14:30 01/11/25 17:10 01/11/25 18:00 Temperature 97.9 F Pulse Rate 81 84 82 Respiratory Rate 22 H 20 Blood Pressure 103/54 L 106/56 L Pulse Oximetry 95 Oxygen Delivery 01/11/25 19:15 01/11/25 20:00 01/11/25 20:00 Temperature 97.9 F Pulse Rate 94 96 Respiratory Rate 20 Blood Pressure 127/46 L Pulse Oximetry 94 Oxygen Delivery Room Air 01/11/25 21:00 01/11/25 22:00 01/11/25 23:33 Temperature 98.4 F Pulse Rate 98 95 Respiratory Rate 17 Blood Pressure 111/40 L Pulse Oximetry 94 96 Oxygen Delivery Room Air 01/12/25 00:00 01/12/25 00:00 01/12/25 02:00 Temperature Pulse Rate 94 92 Respiratory Rate Blood Pressure Pulse Oximetry Oxygen Delivery Room Air 01/12/25 04:00 01/12/25 04:00 01/12/25 04:00 Temperature 98.0 F Pulse Rate 86 83 Respiratory Rate 17 Blood Pressure 118/52 L Pulse Oximetry 94 Oxygen Delivery Room Air 01/12/25 06:00 01/12/25 08:00 01/12/25 08:00 Temperature 97.7 F Pulse Rate 82 82 Respiratory Rate 18 Blood Pressure 118/60 Pulse Oximetry 97 97 Oxygen Delivery Room Air 01/12/25 08:00 01/12/25 10:00 01/12/25 12:00 Temperature Pulse Rate 90 85 86 Respiratory Rate Blood Pressure Pulse Oximetry Oxygen Delivery 01/12/25 12:00 Temperature 98.6 F Pulse Rate 44 L Respiratory Rate 20 Blood Pressure 108/48 L Pulse Oximetry 97 Oxygen Delivery Intake/Output Intake/Output: Intake & Output 01/09/25 01/10/25 01/11/25 01/12/25 23:59 23:59 23:59 23:59 Intake Total 2920 1450 Output Total 300 200 Balance 2620 1250 Meds/Results Medications: Active Medications Generic Name Dose Route Start Last Admin Trade Name Freq PRN Reason Stop Dose Admin Acetaminophen 650 mg 01/11/25 17:10 Acetaminophen 325 Mg Tablet PO Q6H PRN Mild Pain (1-3) or Fever Albuterol/Ipratropium 3 ml 01/11/25 17:10 Ipratropium 0.5 Mg/Albuterol Sulfate 2.5 Mg Ampul.Neb 3 Ml INHALATION Q6HRT PRN Shortness Of Breath Or Wheezing Benzonatate 100 mg 01/11/25 17:10 01/11/25 20:33 Benzonatate 100 Mg Capsule PO 100 mg TID PRN Administration Cough Citalopram Hydrobromide 40 mg 01/12/25 09:00 01/12/25 08:54 Citalopram Hydrobromide 20 Mg Tablet PO 40 mg DAILY KAREN Administration Cyanocobalamin 2,000 mcg 01/12/25 09:00 01/12/25 08:54 Cyanocobalamin 1,000 Mcg Tablet PO 2,000 mcg DAILY KAREN Administration Cyanocobalamin 500 mcg 01/12/25 09:00 01/12/25 08:54 Cyanocobalamin 500 Mcg Tablet PO 500 mcg DAILY KAREN Administration Enoxaparin Sodium 40 mg 01/12/25 09:00 01/12/25 08:54 Enoxaparin 40 Mg/0.4 Ml Syringe SUB-Q 40 mg DAILY KAREN Administration Guaifenesin 600 mg 01/11/25 21:00 01/12/25 08:54 Guaifenesin 12 Hr 600 Mg Tabcr PO 600 mg Q12HR KAREN Administration Ceftriaxone Sodium 1 gm/ 50 mls @ 100 mls/hr 01/12/25 09:00 01/12/25 08:55 Sodium Chloride IVPB 100 mls/hr Q24H KAREN Administration Azithromycin 500 mg/ Sodium 250 mls @ 250 mls/hr 01/12/25 09:00 01/12/25 08:55 Chloride IVPB 01/15/25 09:59 250 mls/hr Q24H KAREN Administration Albumin Human 100 mls @ 60 mls/hr 01/12/25 14:15 Albutein IVPB 01/12/25 15:54 ONCE ONE Multivitamins/Minerals 1 tablet 01/12/25 09:00 01/12/25 08:54 Multivits W-Fe,Min Chewable Tablet PO 1 tablet DAILY KAREN Administration Nicotine 1 patch 01/11/25 18:35 Nicotine (*Pbkc) 14 Mg Patch TRANSDERM DAILY PRN Nicotine Cravings Raloxifene HCl 60 mg 01/12/25 09:00 01/12/25 08:54 Raloxifene Hcl (*Chemo) 60 Mg Tablet PO 60 mg DAILY KAREN Administration Vitamin D 125 mcg 01/12/25 09:00 01/12/25 08:54 Cholecalciferol (Vitamin D3) 125 Mcg (5,000 Units) Tablet PO 125 mcg DAILY KAREN Administration Labs Labs: Laboratory Results - last 24 hr 01/11/25 01/12/25 18:12 03:37 WBC 24.0 H RBC 3.18 L Hgb 10.4 L Hct 30.6 L MCV 96.2 MCH 32.7 MCHC 34.0 RDW 12.9 Plt Count 162 MPV 11.5 H Immature Gran % (Auto) Not Reportable Neut % (Auto) Not Reportable Lymph % (Auto) Not Reportable [place] % (Auto) Not Reportable Eos % (Auto) Not Reportable Baso % (Auto) Not Reportable Lymph # (Auto) Not Reportable [place] # (Auto) Not Reportable Eos # (Auto) Not Reportable Baso # (Auto) Not Reportable Abs Immat Gran (auto) Not Reportable Absolute Neuts (auto) Not Reportable Absolute Nucleated RBC Not Reportable Total Counted 100 Neutrophils % (Manual) 88 H Band Neutrophils % 6 Lymphocytes % (Manual) 3 L Monocytes % (Manual) 3 Nucleated RBC % Not Reportable Abs Neuts (Manual) 22.56 H Abs Lymphs (Manual) 0.72 L Abs Monocytes (Manual) 0.72 Platelet Estimate Adequate Schistocytes None seen Sodium 131 L Potassium 3.3 L Chloride 104 Carbon Dioxide 24 Anion Gap 3 L BUN 25 H D Creatinine 0.74 Estim Creat Clear Calc Not Reportable Estimated GFR > 60 Glucose 97 Calcium 8.3 L Total Bilirubin 0.7 AST 25 ALT 12 Alkaline Phosphatase 111 Total Protein 5.0 L Albumin 2.3 L Urine Color Dark yellow Urine Appearance Cloudy H Urine pH 5.5 Ur Specific [place] 1.016 Urine Protein 1+ H Urine Glucose (UA) Negative Urine Ketones Trace H Ur Blood (Man) Negative Urine Nitrate Negative Urine Bilirubin Negative Urine Urobilinogen 1.0 Add Ur Microanalysis Reviewed Leukocyte Esterase Rfl 1+ H Urine RBC 0-2 Urine WBC 0-5 Ur Squamous Epith Cells Moderate Urine Bacteria None seen Urine Casts 3-5 Nasal MRSA (PCR) Not detected Quality VTE Prophylaxis VTE prophylaxis: pharmacologic ordered
[2025-01-12] MEDS: ALBUMIN HUMAN 25% 25 GM/100 ML 100 ML IVPB (15:24)
[2025-01-12] MEDS: IPRATROPIUM 0.5 MG/ALBUTEROL SULFATE 2.5 MG AMPUL.NEB 3 ML INHALATION ×2 (17:56→23:45)
[2025-01-12 18:12] LABS: Alveolar/Arterial O2 Gradient 39.7 mmHg; Fractional Inspired Oxygen 21 %; HCO3 ABG 23.2 mEq/l (22.0-26.0); Oxygen Content ABG 14.7 %vol (16.0-22.0); Oxygen Saturation ABG 95.4 % (95.0-100.0); PCO2 ABG 32.5 mmHg (35.0-45.0); PO2 ABG 71.1 mmHg (80.0-100.0); PO2 FiO2 Ratio Arterial Blood 3.39 %
[2025-01-12 18:15] LABS: Liters per Minute 0.0 LPM; Modified Allen's Test Pass; Site Drawn RIGHT RADIAL
--- NOTE | 2025-01-12 18:56 | PC.NURSE ---
This patient, Celestina Mars, was transferred to [facility] on 01/12/25 at 1841. Personal belongings sent with patient. Report given to Adela. Appropriate documentation sent with patient.
[2025-01-13] VITALS (18 sets, daily range): BP systolic 117–149; BP diastolic 49–67; PULSE 71–100; RESP 16–20; TEMP 36.2–36.3; O2SAT 95–100
[2025-01-13] MEDS: IPRATROPIUM 0.5 MG/ALBUTEROL SULFATE 2.5 MG AMPUL.NEB 3 ML INHALATION ×4 (04:04→20:24)
[2025-01-13] MEDS: ACETAMINOPHEN 325 MG TABLET 650 MG PO (04:47)
[2025-01-13 06:14] LABS: Hematocrit 29.6 % (37.0-47.0); Hemoglobin 10.0 g/dL (12.0-15.0); Immature Granulocyte Percent A 6.4 % (0-0.5); Lymphocytes Absolute Auto 2.02 K/mm3 (0.9-3.2); Mean Corpuscular HGB Conc 33.8 g/dl (32-36); Mean Corpuscular Hemoglobin 32.9 pg (26-34); Mean Corpuscular Volume 97.4 fl (80-100); Nucleated Red Blood Cells Absolute Auto 0.000 K/mm3 (0.0-0.012); Nucleated Red Blood Cells Perc 0.0 % (0.0-0.2); Platelet Count Result 176 k/mm3 (150-375); Red Blood Count 3.04 M/mm3 (4.2-5.4); White Blood Count 13.0 K/mm3 (4.5-10.0)
[2025-01-13 06:43] LABS: Alanine Aminotransferase 18 U/L (6-35); Albumin Level 2.5 g/dL (3.5-5.1); Alkaline Phosphatase 182 U/L (38-126); Anion Gap 5 mmol/L (4-12); Aspartate Amino Transferase 51 U/L (14-36); Bilirubin,Total 0.4 mg/dL (0.2-1.3); Blood Urea Nitrogen 17 mg/dL (7-17); Calcium 8.8 mg/dL (8.4-10.2); Carbon Dioxide 25 mmol/L (22-30); Chloride 105 mmol/L (98-107); Estimated Glomerular Filt Rate > 60; Glucose 98 mg/dL (65-110); Magnesium 1.8 mg/dL (1.6-2.3); Potassium 2.9 mmol/L (3.4-5.0); Sodium 135 mmol/L (137-145); Total Protein 5.1 g/dL (6.3-8.2)
[2025-01-13] MEDS: guaiFENesin 12 HR 600 MG TABCR PO ×2 (08:35→20:56)
[2025-01-13] MEDS: CHOLECALCIFEROL (VITAMIN D3) 125 MCG (5,000 UNITS) TABLET PO (08:35)
[2025-01-13] MEDS: CYANOCOBALAMIN 1,000 MCG TABLET 2000 MCG PO (08:35)
[2025-01-13] MEDS: ENOXAPARIN 40 MG/0.4 ML SYRINGE SUB-Q (08:35)
[2025-01-13] MEDS: CITALOPRAM HYDROBROMIDE 20 MG TABLET 40 MG PO (08:35)
[2025-01-13] MEDS: MULTIVITS W-FE,MIN CHEWABLE TABLET 1 TABLET PO (08:36)
[2025-01-13] MEDS: RALOXIFENE HCL (*CHEMO) 60 MG TABLET PO (08:36)
[2025-01-13] MEDS: CYANOCOBALAMIN 500 MCG TABLET PO (08:36)
[2025-01-13] MEDS: cefTRIAXone 1 GM in SODIUM CHLORIDE 0.9% IV 50 ML 100 ML IVPB (08:36)
[2025-01-13] MEDS: AZITHROMYCIN IV 500 MG in SODIUM CHLORIDE 0.9% IV 250 ML IVPB (08:37)
--- NOTE | 2025-01-13 13:43 | PM.IMPN ---
Progress Note: A&P Assessment and Plan (1) Sepsis: Qualifiers: Sepsis type: sepsis due to unspecified organism Sepsis acute organ dysfunction status: without acute organ dysfunction Qualified Code(s): A41.9 - Sepsis, unspecified organism Code(s): A41.9 - Sepsis, unspecified organism Status: Acute Assessment and Plan: Vital signs improving and stable s/p IVF CXR showed dense RUL opacities, CT chest confirmed RUL opacities Monitor culture Continue Rocephin and Azithromycin continue close monitoring (2) PNA (pneumonia): Qualifiers: Laterality: right Lung location: middle lobe of lung Pneumonia type: due to unspecified organism Qualified Code(s): J18.9 - Pneumonia, unspecified organism Code(s): J18.9 - Pneumonia, unspecified organism Status: Acute Assessment and Plan: continue above care MRSA negative (3) Tobacco use disorder, continuous: Code(s): F17.209 - Nicotine dependence, unspecified, with unspecified nicotine-induced disorders Status: Chronic Assessment and Plan: - current everyday smoker, 1PPD - nicotine patch p.r.n. Plan Diet: Heart healthy DVT Prophylaxis: Lovenox SQ Code Status: Modified Code, no CPR Subjective Date/time seen: 01/13/25 13:43 Interval history: Comfortable at bedside Awaiting PT/OT eval Review of Systems Review of Systems: All systems reviewed & are unremarkable except as noted in HPI and below Exam Const: General: comfortable and no acute distress Other: , female, elderly, nontoxic appearance HENMT: Face/Nose/Sinus: Normal nares present Mouth: Yes moist mucous membranes Eyes: General: appearance normal, both eyes and all related structures Sclera: sclerae normal Pupils: Equal, round and reactive pupils present EOM: EOMs intact bilaterally Resp: Effort & Inspection: normal respiratory effort Other: Diminished breath sounds in the right lung field, no appreciable crackles. Clear in the left lung hernandez. No wheezing. Cardio: Rate: regular rate Rhythm: regular rhythm Other: S1-S2 present without murmur, rub, ectopy GI: Other: Abdomen soft, nondistended, nontender. Normoactive bowel sounds in all quadrants. Skin: General skin exam: normal color and no rashes or lesions noted Wounds: no wounds Neuro: Cranial nerves: Yes Equal, round and reactive pupils present Speech: normal speech Motor exam (neuro): 5/5 motor strength present throughout Sensory Exam: normal sensation Other: A&O x4 Extrem: General: normal to inspection Psych: Mental Status: mental status grossly normal Affect: normal affect Other: Good insight and judgment, pleasant Objective Data Vital Signs Vital Signs: Vital Signs - 24 hr 01/12/25 16:00 01/12/25 16:00 01/12/25 18:19 Temperature 98.7 F Pulse Rate 70 71 81 Respiratory Rate 20 18 Blood Pressure 98/46 L Pulse Oximetry 96 Oxygen Delivery 01/12/25 18:25 01/12/25 18:51 01/12/25 20:00 Temperature 96.7 F L Pulse Rate 84 78 87 Respiratory Rate 18 28 H Blood Pressure 108/44 L Pulse Oximetry 97 Oxygen Delivery 01/12/25 22:06 01/12/25 23:45 01/12/25 23:45 Temperature 97.4 F L Pulse Rate 91 78 78 Respiratory Rate 18 18 Blood Pressure 104/41 L Pulse Oximetry 97 97 Oxygen Delivery Room Air 01/12/25 23:55 01/13/25 00:00 01/13/25 04:00 Temperature Pulse Rate 77 87 78 Respiratory Rate 18 Blood Pressure Pulse Oximetry Oxygen Delivery 01/13/25 04:04 01/13/25 04:13 01/13/25 06:00 Temperature 97.4 F L Pulse Rate 83 78 83 Respiratory Rate 18 18 18 Blood Pressure 117/49 L Pulse Oximetry 98 Oxygen Delivery 01/13/25 07:31 01/13/25 07:31 01/13/25 07:40 Temperature Pulse Rate 81 81 100 Respiratory Rate 20 20 20 Blood Pressure Pulse Oximetry 100 Oxygen Delivery Room Air 01/13/25 08:35 01/13/25 08:35 01/13/25 12:46 Temperature Pulse Rate 87 71 Respiratory Rate 20 Blood Pressure Pulse Oximetry 100 95 Oxygen Delivery Room Air Room Air 01/13/25 12:46 01/13/25 12:54 Temperature Pulse Rate 71 80 Respiratory Rate 20 20 Blood Pressure Pulse Oximetry Oxygen Delivery Intake/Output Intake/Output: Intake & Output 01/10/25 01/11/25 01/12/25 01/13/25 23:59 23:59 23:59 23:59 Intake Total 2920 2560 690 Output Total 300 1100 Balance 2620 1460 690 Meds/Results Medications: Active Medications Generic Name Dose Route Start Last Admin Trade Name Urbanoq PRN Reason Stop Dose Admin Acetaminophen 650 mg 01/11/25 17:10 01/13/25 04:47 Acetaminophen 325 Mg Tablet PO 650 mg Q6H PRN Administration Mild Pain (1-3) or Fever Albuterol/Ipratropium 3 ml 01/11/25 17:10 Ipratropium 0.5 Mg/Albuterol Sulfate 2.5 Mg Ampul.Neb 3 Ml INHALATION Q6HRT PRN Shortness Of Breath Or Wheezing Albuterol/Ipratropium 3 ml 01/12/25 20:00 01/13/25 12:45 Ipratropium 0.5 Mg/Albuterol Sulfate 2.5 Mg Ampul.Neb 3 Ml INHALATION 3 ml Q4HRT KAREN Administration Benzonatate 100 mg 01/11/25 17:10 01/11/25 20:33 Benzonatate 100 Mg Capsule PO 100 mg TID PRN Administration Cough Citalopram Hydrobromide 40 mg 01/12/25 09:00 01/13/25 08:35 Citalopram Hydrobromide 20 Mg Tablet PO 40 mg DAILY KAREN Administration Cyanocobalamin 2,000 mcg 01/12/25 09:00 01/13/25 08:35 Cyanocobalamin 1,000 Mcg Tablet PO 2,000 mcg DAILY KAREN Administration Cyanocobalamin 500 mcg 01/12/25 09:00 01/13/25 08:36 Cyanocobalamin 500 Mcg Tablet PO 500 mcg DAILY KAREN Administration Enoxaparin Sodium 40 mg 01/12/25 09:00 01/13/25 08:35 Enoxaparin 40 Mg/0.4 Ml Syringe SUB-Q 40 mg DAILY KAREN Administration Guaifenesin 600 mg 01/11/25 21:00 01/13/25 08:35 Guaifenesin 12 Hr 600 Mg Tabcr PO 600 mg Q12HR KAREN Administration Ceftriaxone Sodium 1 gm/ 50 mls @ 100 mls/hr 01/12/25 09:00 01/13/25 08:36 Sodium Chloride IVPB 100 mls/hr Q24H KAREN Administration Azithromycin 500 mg/ Sodium 250 mls @ 250 mls/hr 01/12/25 09:00 01/13/25 08:37 Chloride IVPB 01/15/25 09:59 250 mls/hr Q24H KAREN Administration Multivitamins/Minerals 1 tablet 01/12/25 09:00 01/13/25 08:36 Multivits W-Fe,Min Chewable Tablet PO 1 tablet DAILY KAREN Administration Nicotine 1 patch 01/11/25 18:35 Nicotine (*Pbkc) 14 Mg Patch TRANSDERM DAILY PRN Nicotine Cravings Raloxifene HCl 60 mg 01/12/25 09:00 01/13/25 08:36 Raloxifene Hcl (*Chemo) 60 Mg Tablet PO 60 mg DAILY KAREN Administration Vitamin D 125 mcg 01/12/25 09:00 01/13/25 08:35 Cholecalciferol (Vitamin D3) 125 Mcg (5,000 Units) Tablet PO 125 mcg DAILY KAREN Administration Radiology Results: ITS Impressions Chest X-Ray 01/12/25 14:15 Impression: 1: Stable pneumonia right upper and middle lobes. Chest CT 01/12/25 14:45 IMPRESSION: Right upper lobe and right middle lobe consolidation. No empyema is seen. Labs Labs: Laboratory Results - last 24 hr 01/12/25 01/13/25 17:57 05:32 WBC 13.0 H RBC 3.04 L Hgb 10.0 L Hct 29.6 L MCV 97.4 MCH 32.9 MCHC 33.8 RDW 13.2 Plt Count 176 MPV 11.6 H Immature Gran % (Auto) 6.4 H Neut % (Auto) 67.8 Lymph % (Auto) 15.5 L [place] % (Auto) 9.1 H Eos % (Auto) 0.4 Baso % (Auto) 0.8 Lymph # (Auto) 2.02 [place] # (Auto) 1.2 H Eos # (Auto) 0.1 Baso # (Auto) 0.1 Abs Immat Gran (auto) 0.83 H Absolute Neuts (auto) 8.8 H Absolute Nucleated RBC 0.000 Nucleated RBC % 0.0 Puncture Site Right radial ABG pH 7.471 H ABG pCO2 32.5 L ABG pO2 71.1 L ABG PO2/FiO2 Ratio 3.39 ABG HCO3 23.2 ABG O2 Saturation 95.4 ABG O2 Content 14.7 L ABG Base Excess 0.0 A-a Gradient 39.7 Oxyhemoglobin 93.1 Total Hemoglobin 11.2 L O2 Delivery Device Room air O2 Liters/Min 0.0 FiO2 21 Sodium 135 L Potassium 2.9 L Chloride 105 Carbon Dioxide 25 Anion Gap 5 BUN 17 Creatinine 0.62 L Estim Creat Clear Calc Not Reportable Estimated GFR > 60 Glucose 98 Calcium 8.8 Magnesium 1.8 Total Bilirubin 0.4 AST 51 H ALT 18 Alkaline Phosphatase 182 H Total Protein 5.1 L Albumin 2.5 L Quality VTE Prophylaxis VTE prophylaxis: pharmacologic ordered
[2025-01-14] VITALS (11 sets, daily range): BP systolic 121–127; BP diastolic 53–59; PULSE 73–92; RESP 16–22; TEMP 36.2–36.3; O2SAT 94–97
[2025-01-14] MEDS: IPRATROPIUM 0.5 MG/ALBUTEROL SULFATE 2.5 MG AMPUL.NEB 3 ML INHALATION ×3 (02:31→15:07)
[2025-01-14] MEDS: ACETAMINOPHEN 325 MG TABLET 650 MG PO (02:35)
[2025-01-14 05:58] LABS: Hematocrit 27.2 % (37.0-47.0); Hemoglobin 9.3 g/dL (12.0-15.0); Immature Granulocyte Percent A 9.0 % (0-0.5); Lymphocytes Absolute Auto 1.77 K/mm3 (0.9-3.2); Mean Corpuscular HGB Conc 34.2 g/dl (32-36); Mean Corpuscular Hemoglobin 33.2 pg (26-34); Mean Corpuscular Volume 97.1 fl (80-100); Nucleated Red Blood Cells Absolute Auto 0.000 K/mm3 (0.0-0.012); Nucleated Red Blood Cells Perc 0.0 % (0.0-0.2); Platelet Count Result 197 k/mm3 (150-375); Red Blood Count 2.80 M/mm3 (4.2-5.4); White Blood Count 9.6 K/mm3 (4.5-10.0)
[2025-01-14 06:23] LABS: Alanine Aminotransferase 25 U/L (6-35); Albumin Level 2.4 g/dL (3.5-5.1); Alkaline Phosphatase 92 U/L (38-126); Anion Gap 3 mmol/L (4-12); Aspartate Amino Transferase 41 U/L (14-36); Bilirubin,Total 0.4 mg/dL (0.2-1.3); Blood Urea Nitrogen 13 mg/dL (7-17); Calcium 8.4 mg/dL (8.4-10.2); Carbon Dioxide 26 mmol/L (22-30); Chloride 107 mmol/L (98-107); Estimated Glomerular Filt Rate > 60; Glucose 103 mg/dL (65-110); Magnesium 1.6 mg/dL (1.6-2.3); Potassium 3.1 mmol/L (3.4-5.0); Sodium 136 mmol/L (137-145); Total Protein 5.1 g/dL (6.3-8.2)
[2025-01-14 06:30] LABS: Giant Platelets Present; Hypochromasia 1+; Schistocytes None Seen
[2025-01-14] MEDS: CHOLECALCIFEROL (VITAMIN D3) 125 MCG (5,000 UNITS) TABLET PO (08:50)
[2025-01-14] MEDS: CITALOPRAM HYDROBROMIDE 20 MG TABLET 40 MG PO (08:50)
[2025-01-14] MEDS: CYANOCOBALAMIN 1,000 MCG TABLET 2000 MCG PO (08:50)
[2025-01-14] MEDS: guaiFENesin 12 HR 600 MG TABCR PO (08:50)
[2025-01-14] MEDS: CYANOCOBALAMIN 500 MCG TABLET PO (08:50)
[2025-01-14] MEDS: AZITHROMYCIN IV 500 MG in SODIUM CHLORIDE 0.9% IV 250 ML IVPB (08:51)
[2025-01-14] MEDS: MULTIVITS W-FE,MIN CHEWABLE TABLET 1 TABLET PO (08:51)
[2025-01-14] MEDS: RALOXIFENE HCL (*CHEMO) 60 MG TABLET PO (08:51)
[2025-01-14] MEDS: cefTRIAXone 1 GM in SODIUM CHLORIDE 0.9% IV 50 ML 100 ML IVPB (08:52)
[2025-01-14] MEDS: ENOXAPARIN 40 MG/0.4 ML SYRINGE SUB-Q (09:10)
--- NOTE | 2025-01-14 13:53 | P.DS_ITS ---
DS: Admitting Diagnosis Discharge Date 01/14/2025 Admitting Diagnosis Shortness of Breath DS: Discharge Diagnosis Discharge Diagnosis (1) Sepsis: Qualifiers: Sepsis type: sepsis due to unspecified organism Sepsis acute organ dysfunction status: without acute organ dysfunction Qualified Code(s): A41.9 - Sepsis, unspecified organism Code(s): A41.9 - Sepsis, unspecified organism Status: Acute (2) PNA (pneumonia): Qualifiers: Laterality: right Lung location: middle lobe of lung Pneumonia type: due to unspecified organism Qualified Code(s): J18.9 - Pneumonia, unspecified organism Code(s): J18.9 - Pneumonia, unspecified organism Status: Acute DS: Summary Hospital Course Hospital Course: 79 y/o F with PMH of bilious pemphigoid, anxiety, depression, hyperlipidemia, osteopenia, vitamins B12 deficiency, BPPV, and osteoarthritis presents here with shortness of breath. Initial VS at presentation: HR 97, R 16, 05/14/2058, and 96% on RA. ED workup showed: WBC 22.6, no anemia, sodium 131, creatinine 1.01 and GFR 53, glucose 120, lactic 1.8, and viral PCR negative. CXR showed right upper and middle lobar pneumonia. Initial EKG showed sinus rhythm, rate 90. Patient was managed for Sepsis and pneumonia with Rocephin and Azithromycin, blood culture positive for Strept pneumonia. Sepsis has resolved adn patient eating adequately and walked with PT/OT today and was recommended home with home health. patient was never on oxygen Hypokalemia, k on 2.9 and replaced tday is 3.1 which was also replaced. Patient was discharged on 7 more days of Cefuroxime and 2 days of Azithromycin. discharged on 5 days of 20mEq Po KCl. Patient will follow up with PCP in 3-5 days Discussed plan with son who was at bedside Time Spent with Patient Time attestation: Total time spent providing and/or coordinating discharge services: DS: Data Data Completed and Pending Labs on day of discharge: Labs from last 24 hours 01/14/25 05:33 WBC 9.6 RBC 2.80 L Hgb 9.3 L Hct 27.2 L MCV 97.1 MCH 33.2 MCHC 34.2 RDW 13.2 Plt Count 197 MPV 11.2 H Immature Gran % (Auto) 9.0 H Neut % (Auto) 62.5 Lymph % (Auto) 18.4 [place] % (Auto) 8.8 H Eos % (Auto) 0.7 Baso % (Auto) 0.6 Lymph # (Auto) 1.77 [place] # (Auto) 0.9 H Eos # (Auto) 0.1 Baso # (Auto) 0.1 Abs Immat Gran (auto) 0.87 H Absolute Neuts (auto) 6.0 Absolute Nucleated RBC 0.000 Band Neutrophils % Not Reportable Nucleated RBC % 0.0 Atypical Lymphocytes Present Platelet Estimate Adequate Large Platelets Present Giant Platelets Present Hypochromasia 1+ Schistocytes None seen Sodium 136 L Potassium 3.1 L Chloride 107 Carbon Dioxide 26 Anion Gap 3 L BUN 13 Creatinine 0.55 L Estim Creat Clear Calc Not Reportable Estimated GFR > 60 Glucose 103 Calcium 8.4 Magnesium 1.6 Total Bilirubin 0.4 AST 41 H ALT 25 Alkaline Phosphatase 92 Total Protein 5.1 L Albumin 2.4 L Preliminary micro results at discharge 01/11/25 13:01 Blood Culture - Preliminary Blood Streptococcus pneumoniae 01/11/25 13:03 Blood Culture - Preliminary Blood Discharge Plan Discharge Attending physician on discharge: Alfie Jama Discharging Clinician: Alfie Jama Anticipated Discharge Date/Time: 01/14/25 13:42 Patient Disposition: Home with Home Health Service Activity: as tolerated Diet: as tolerated and regular Patient Instructions: Antibiotic Form Patient Language: Salvadorean Stand Alone Forms: General Discharge Information Follow-up/Referrals: Edwin Michael MD [Primary Care Provider, Family Practice] Referral Note: F/u with PCP in 3-5 days Discharge Medications: New cefuroxime axetil 500 mg tablet 500 mg PO Q12H 7 Days Qty: 14 0RF azithromycin 500 mg Tablet 500 mg PO DAILY 2 Days Qty: 2 0RF potassium chloride [K-Tab] 20 mEq tablet extended release 20 meq PO DAILY 5 Days Qty: 5 0RF Continued mecobalamin (vitamin B12) 2,500 mcg tablet,chewable 2,500 mcg PO DAILY cholecalciferol (vitamin D3) 125 mcg (5,000 unit) capsule 5,000 unit PO DAILY Centrum Adult 50 Plus 80 mcg tablet,chewable 1 tablet PO DAILY raloxifene [Evista] 60 mg tablet 60 mg PO DAILY Qty: 90 3RF citalopram 40 mg tablet 40 mg PO DAILY Qty: 90 3RF Date of admission: 01/12/25 10:19 Primary Care Provider: Edwin Michael Admitting Provider: Katerina Goyal Attending physician on admission: Katerina Goyal Condition: Guarded Prognosis
[2025-01-14] MEDS: AZITHROMYCIN 500 MG TABLET PO (14:09)
[2025-01-14] MEDS: POTASSIUM CHLORIDE 20 MEQ PACKET (FOR LIQUID) 40 MEQ PO (14:10)
== END 2025-01-14 15:54 | disposition home health service (06) | DRG 871 ==
LOC: ANHED 15:31 → ANHIMU 16:35 → ANH3MED 01-14 13:43 → ANHIMU 01-17 11:15
PROVIDERS: Emergency Medicine; Student in an Organized Health Care Education/Training Program; Admitting Provider General Practice; Emergency Provider Emergency Medicine; PCP Family Medicine; Visit Provider Internal Medicine
DX: A40.3 Sepsis due to Streptococcus pneumoniae (principal); J18.9 Pneumonia, unspecified organism; E78.2 Mixed hyperlipidemia; E53.8 Deficiency of other specified B group vitamins; M85.80 Other specified disorders of bone density and structure, unspecified site; M16.12 Unilateral primary osteoarthritis, left hip; F17.210 Nicotine dependence, cigarettes, uncomplicated; Z20.822 Contact with and (suspected) exposure to COVID-19
CPT/HCPCS: 36415; 36600; 71045; 71046; 71100; 71250; 80053; 81001; 82805; 83605; 83735; 85018; 85025; 87040; 87426; 87637; 87641; 87804; 93005; 94640; 96365; 96367; 96372; 97161; 99213; 99285; A9270; G0378; G0379; G0463; J0456; J0696; J1650; J7040; J7050; J7120; P9047

== ENCOUNTER 2025-04-26 18:32 | Emergency (ER) | payer MEDICARE, SELFPAY ==
--- NOTE | ~2025-04-26 | XR_ITS ---
XR chest 2V HOSTORY: cough x3 days COMPARISON:[ None] FINDINGS: Frontal and lateral views of the chest were obtained. The lungs are clear. The heart size is normal in size. Pulmonary vasculature is unremarkable. Osseous structures are intact. IMPRESSION: No acute lung findings.] [ ] Reviewed, dictated and finalized at location S. OF INSTRUCTION
[2025-04-26 18:45] VITALS: BP 151/69; PULSE 82; RESP 18; TEMP 36.6; O2SAT 98
--- OUTSIDE RECORDS SUMMARY | 2025-04-26 19:04 | XMS_ITS | Clinical Summary ---
Author Organization [facility] Address [address], [address] [address] Phone Care Team Providers Care Stock Analyst Name Role Phone Edwin Michael MD Primary [...] (Adult) (1 - 1-dose 75+ series) 12/29/2019 Medicare Initial AWV [id number] 05/11/2020 Influenza Immunization (#1) 2025 SARS-COV-2 Immunization ( season) 2025 Hepatitis B Immunization Aged Out No [...] to complete this topic Insurance MEDICARE C [employer] on file Care Teams Stock Analyst Relationship Specialty Start Date End Date Edwin Michael MD [address] [id number] PCP - General Family Medicine 08/07/16
--- NOTE | 2025-04-26 19:16 | ED.URI ---
HPI - URI/Sore Throat General Chief Complaint: Upper Respiratory Infection Stated Complaint: URI symptoms / had pneumonia not to long ago Time Seen by Provider: 04/26/25 19:06 Source: patient, family (daughter) and RN notes reviewed Mode of arrival: ambulatory Limitations: no limitations History of Present Illness HPI Narrative: 79-year-old female patient presents today with a 3 day history of cough, sore throat, headache. Denies shortness of breath fever, difficulty swallowing. Patient reports multiple small children live in her home that have been sick on and off. She has been taking Mucinex and Tylenol with some improvement. Patient recently had pneumonia 2 months ago. States that her PCP today instructed her to do a home COVID and influenza test. If these were negative, which they were, she was to come to urgent care for chest x-ray. Related Data Home Medications ?Medication ?Instructions ?Recorded ?Confirmed ?Last Taken ?Type mecobalamin (vitamin B12) 2,500 2,500 mcg PO DAILY 10/03/22 01/19/25 01/08/25 History mcg chewable tablet cholecalciferol (vitamin D3) 125 5,000 unit PO DAILY 04/21/23 01/19/25 01/08/25 History mcg (5,000 unit) capsule multivitamin with minerals-folic 1 tablet PO DAILY 01/11/25 01/19/25 01/08/25 History acid 80 mcg chewable tablet (Centrum Adult 50 Plus) guaifenesin 1,200 mg tablet, 1,200 mg PO Q12H 01/19/25 01/19/25 Unknown History extended release 12 hr (Mucinex) Allergies Allergy/AdvReac Type Severity Reaction Status Date / Time iodine Allergy Intermediate Urticaria Verified 04/26/25 18:36 seafood AdvReac Intermediate Hives Uncoded 01/19/25 09:57 [facility] Past Medical History Medical History (Reviewed 04/26/25 @ 19:19 by Slime Soares, [employer]SACTION COORDINATOR, [employer] W[employer]) Eustachian tube dysfunction Fatigue Hypokalemia Anemia Bullous pemphigoid (~10/15/23) lower extremities possibly from medication( ibuprofen, cefdinir, citalopram?) Mixed hyperlipidemia cholesterol 198, triglycerides 87, HDL 61, LDL 118 with ratio 3.2 on 10/02/2023. Anxiety and depression Spider bite (~10/15/23) likely pemphigoid .dorsum right foot with cellulitis At moderate risk for fall Breast cancer screening Osteopenia Vitamin B12 deficiency (10/03/21) Level low at 269 with goal greater than 400 on 10/03/2021. Hemoglobin normal at 13.5. 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 vestibular disorder COVID-19 (~05/29/21) tested positive 06/04/2021 Acute non-recurrent maxillary sinusitis Osteoarthritis of left hip Colon cancer screening Breast cancer screening by mammogram Family History Family History Father Patient's father is , Onset Age: 80 Family history of malignant neoplasm of stomach Grandparent Family history of malignant neoplasm of stomach Family history of malignant neoplasm of uterus Mother Family history of kidney disease, Onset Age: 94 Social History Social History Smoking packs per day: 1 Smoking cigarettes per day: 20.0 Years smoked: 50 Smoking pack-years: 50.00 Smoking status: Former smoker Tobacco type: cigarettes Second hand tobacco smoke exposure: Yes Alcohol intake: never Substance use: never Substance use type: does not use Lack of Transportation: YES Lack of Food: Never True Current Housing: I Have Housing Concerned About Future Housing: No Difficulty Paying Gas/Electric Bills: No Difficulty Paying for Meds: No Currently Unemployed: No Education: Associate Degree Difficulty w/ Childcare or Family Care: No Gender identity (if verbalized by the patient): Female Spiritual care concerns: No Comments At time of signature, I have reviewed and agree with nursing past medical, surgical, social and family history unless otherwise noted. Please see nursing chart for further information. There is no relevant family history pertinent to the presenting complaint Exam Narrative: GENERAL: Well-appearing, well-nourished, and in no acute distress. HEAD: Normocephalic, atraumatic. EYES: EOMI. No redness or drainage. Conjunctivae normal. ENT: Mucous membranes pink and moist. Nares clear. No rhinorrhea. TMs normal bilaterally. Throat normal. Uvula midline. NECK: Normal AROM. Supple. No lymphadenopathy. CHEST: No respiratory distress. Clear to auscultation. HEART: Regular rate and rhythm. No murmur appreciated. EXTREMITIES: Normal range of motion. No edema. SKIN: Warm, dry, no rash. Capillary refill normal. Normal skin turgor. NEURO: No focal deficits. Alert and oriented x3. Gait steady. PSYCH: Normal affect. No signs of depression or anxiety. Course Course Level of Care: Express Care Visit Vital Signs Vital signs: Vital Signs Temperature 97.8 F 04/26/25 18:45 Pulse Rate 82 04/26/25 18:45 Respiratory Rate 18 04/26/25 18:45 Blood Pressure 151/69 H 04/26/25 18:45 Pulse Oximetry 98 04/26/25 18:45 Oxygen Delivery Room Air 04/26/25 18:45 Temperature 97.8 F 04/26/25 18:45 Pulse Rate 82 04/26/25 18:45 Respiratory Rate 18 04/26/25 18:45 Blood Pressure 151/69 H 04/26/25 18:45 Pulse Oximetry 98 04/26/25 18:45 Oxygen Delivery Room Air 04/26/25 18:45 Reviewed MDM MDM Narrative Medical decision making narrative: 79-year-old female patient presents today with a 3 day history of cough, sore throat, headache. Denies shortness of breath fever, difficulty swallowing. Patient reports multiple small children live in her home that have been sick on and off. Patient recently had pneumonia 2 months ago. States that her PCP today instructed her to do a home COVID and influenza test. If these were negative, which they were, she was to come to urgent care for chest x-ray. Upon exam, patient has lung auscultation is normal. Rapid strep negative. Culture pending. Chest x-ray negative. Symptoms likely viral in etiology. Discussed [id number] medication use and duration of illness. No prescription medications indicated at this time. Anticipatory guidance given. Vital signs stable. ED precautions given. Differential Diagnosis Differential Diagnosis: URI, strep throat, bronchitis, pneumonia Imaging Data Radiologist's impression: ITS Impressions Chest X-Ray 04/26/25 19:30 IMPRESSION: No acute lung findings.] [ ] Critical Care Time Critical Care Time Critical Care Time: No Discharge Plan Discharge Clinical Impression: Upper respiratory infection Qualifiers: URI type: unspecified URI Qualified Code(s): J06.9 - Acute upper respiratory infection, unspecified Patient Disposition: Home Condition: Stable Instructions: Upper Respiratory Infection (DC) Additional Instructions: Your chest x-ray and rapid strep screen are negative today. Your symptoms are likely due to a viral illness, which is not treated with antibiotics. Virus symptoms can last for up to 7-10days. Take Tylenol for pain or fever. You may continue the Mucinex as well. Rest and stay hydrated. Follow up with your PCP in 5-7 days if symptoms are not improving. Go to the ER immediately if you develop shortness of breath, difficulty swallowing, fever greater than 100.3, or any other concerning symptoms. Patient Language: [place] Prescriptions: No Action mecobalamin (vitamin B12) 2,500 mcg tablet,chewable 2,500 mcg PO DAILY cholecalciferol (vitamin D3) 125 mcg (5,000 unit) capsule 5,000 unit PO DAILY albuterol sulfate [Ventolin HFA] 90 mcg/actuation HFA aerosol inhaler 1 - 2 inh inhalation Q4-6H PRN (Reason: shortness of breath or wheezing) Qty: 8.5 5RF fluticasone propionate [Flonase Allergy Relief] 50 mcg/actuation spray,suspension 1 spray intranasal BID Qty: 16 5RF Rx Instructions: administer into each nostril Breztri Aerosphere 160-9-4.8 mcg/actuation HFA aerosol inhaler 2 inh inhalation BID Qty: 10.7 5RF guaifenesin [Mucinex] 1,200 mg tablet extended release 12hr 1,200 mg PO Q12H Centrum Adult 50 Plus 80 mcg tablet,chewable 1 tablet PO DAILY raloxifene [Evista] 60 mg tablet 60 mg PO DAILY Qty: 90 3RF citalopram 40 mg tablet 40 mg PO DAILY Qty: 90 3RF cefuroxime axetil 500 mg tablet 500 mg PO Q12H 7 Days Qty: 14 0RF Follow-up/Referrals: Edwin Michael MD [Primary Care Provider, [facility]] Time of Disposition: 19:41
[2025-04-26 20:01] LABS: EDSTREPNEGPOS1 Negative (Negative)
[2025-04-26 20:01] LABS: EDSTREPNEGPOS1 Negative (Negative)
== END 2025-04-26 19:47 | disposition home or self-care (01) ==
PROVIDERS: Emergency Provider Nurse Practitioner; PCP Family Medicine
DX: J06.9 Acute upper respiratory infection, unspecified (principal); Z87.891 Personal history of nicotine dependence; E78.2 Mixed hyperlipidemia; M85.80 Other specified disorders of bone density and structure, unspecified site; M16.12 Unilateral primary osteoarthritis, left hip; E53.8 Deficiency of other specified B group vitamins; F41.9 Anxiety disorder, unspecified; F32.A Depression, unspecified; Z86.16 Personal history of COVID-19
CPT/HCPCS: 71046; 87081; 87880; 99213; G0463